=== PATIENT | female | born 1990 | race Two or more races ===

== ENCOUNTER 2016-11-18 16:56 | Emergency (ER) | payer MEDICARE, MEDICAID ==
--- NOTE | 2016-11-18 17:03 | EDM.PDOC ---
ED HPI GENERAL MEDICAL PROBLEM - General Chief Complaint: Abdominal Pain Stated Complaint: STOMACH PAIN Time Seen by Provider: 11/18/16 17:02 Source of Information: Reports: Patient History Limitations: Reports: No Limitations - History of Present Illness INITIAL COMMENTS - FREE TEXT/NARRATIVE: 26 yo F who presents to the ER with recurrent abdominal pain that has been ongoing for the past 2 months. Reports that the pain has been on and off without any obvious aggravating or relieving factors. Pain is mainly on the mid abdomen. Sharp in nature, 4/10 with no obvious aggravating or relieving factors. No fever. It appears she has been evaluated in the past without any exact etiology for her pain. Denied any urinary symptoms. Presented to the ER on account of worsening of symptoms. Onset: Other (ongoing for more than 2 months now) Duration: Getting Worse Quality: Reports: Sharp Improves with: Reports: None Associated Symptoms: Reports: No Other Symptoms abdomen Pain Score (Numeric/FACES): 3 - Related Data Allergies Allergy/AdvReac Type Severity Reaction Status Date / Time Penicillins Allergy Hives Verified 11/18/16 17:24 Home Meds: Home Meds Control Pill 1 tab PO DAILY 11/18/16 [History] Past Medical History HEENT History: Reports: None Cardiovascular History: Reports: None Respiratory History: Reports: Bronchitis, Recurrent Gastrointestinal History: Reports: Cholelithiasis Genitourinary History: Reports: None 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 History: Musculoskeletal History: Reports: Other (See Below) Other Musculoskeletal History: RT LEG PAIN Neurological History: Reports: Migraines Psychiatric History: Reports: None Endocrine/Metabolic History: Reports: Obesity/BMI 30+ Hematologic History: Reports: Anemia, Blood Transfusion(s) Immunologic History: Reports: None Oncologic (Cancer) History: Reports: None Dermatologic History: Reports: None - Past Surgical History Female Surgical History: Reports: Section Social & Family History - Family History Family Medical History: Noncontributory OBGYN: Reports: Other (See Below) Other OBGYN Family History: No Control,. Sexually Active, no period for several months - Tobacco Use Smoking Status *Q: Former Smoker Years of Tobacco use: 2 Packs/Tins Daily: 1 Used Tobacco, but Quit: Yes Month Tobacco Last Used: 12/20 Second Hand Smoke Exposure: No - Caffeine Use Caffeine Use: Reports: Soda - Alcohol Use Days Per Week of Alcohol Use: 1 Number of Drinks Per Day: 2 Total Drinks Per Week: 2 - Recreational Drug Use Recreational Drug Use: No Drug Use in Last 12 Months: Yes Recreational Drug Type: Reports: Marijuana/Hashish ED ROS GENERAL - Review of Systems Review Of Systems: See Below Constitutional: Reports: No Symptoms HEENT: Reports: No Symptoms Respiratory: Reports: No Symptoms Cardiovascular: Reports: No Symptoms Endocrine: Reports: No Symptoms GI/Abdominal: Reports: Abdominal Pain : Reports: No Symptoms Musculoskeletal: Reports: No Symptoms Skin: Reports: No Symptoms Neurological: Reports: No Symptoms Psychiatric: Reports: No Symptoms Hematologic/Lymphatic: Reports: No Symptoms Immunologic: Reports: No Symptoms ED EXAM, GENERAL - Physical Exam Exam: See Below Exam Limited By: No Limitations General Appearance: Alert, WD/WN, No Apparent Distress Ears: Normal External Exam, Normal Canal, Normal TMs Nose: Normal Inspection, Normal Mucosa, No Blood Throat/Mouth: Normal Inspection, Normal Lips, Normal Teeth Head: Atraumatic, Normocephalic Neck: Normal Inspection Respiratory/Chest: No Respiratory Distress, Lungs Clear Cardiovascular: Normal Peripheral Pulses, Regular Rate, Rhythm, No Edema, No JVD , No Murmur GI/Abdominal: Normal Bowel Sounds, Soft, No Organomegaly, Tender, Other (vague mid abdominal pain) (Female) Exam: Deferred Rectal (Female) Exam: Deferred Back Exam: Normal Inspection, Full Range of Motion Extremities: Normal Inspection, Normal Range of Motion, Non-Tender Neurological: Alert, Oriented, CN II-XII Intact, Normal Cognition Psychiatric: Normal Affect, Normal Mood Skin Exam: Warm Lymphatic: No Adenopathy Course - Vital Signs Last Recorded V/S: Last Vital Signs Temp 36.9 C 11/18/16 17:00 Pulse 75 11/18/16 19:42 Resp 14 11/18/16 19:42 BP 124/47 L 11/18/16 19:42 Pulse Ox 100 11/18/16 19:42 - Orders/Labs/Meds Orders: Active Orders 24 hr Category Date Time Status Abdomen 1V Flat [CR] Stat Exams 11/18/16 17:19 Stop Req Labs: Laboratory Tests 11/18/16 11/18/16 11/18/16 Range/Units 17:17 17:17 17:25 WBC 8.8 (4.5-12.0) X10-3/uL RBC 4.88 (3.23-5.20) x10(6)uL Hgb 13.0 (11.5-15.5) g/dL Hct 40.0 (30.0-51.3) % MCV 81.9 (80-96) fL MCH 26.5 L (27.7-33.6) pg MCHC 32.4 (32.2-35.4) g/dL RDW 13.3 (11.5-15.5) % Plt Count 202 (125-369) X10(3)uL MPV 9.9 (7.4-10.4) fL Neut % (Auto) 67.7 (46-82) % Lymph % (Auto) 24.9 (13-37) % [place] % (Auto) 5.9 (4-12) % Eos % (Auto) 1 (1.0-5.0) % Baso % (Auto) 1 (0-2) % Neut # (Auto) 5.9 (1.6-8.3) # Lymph # (Auto) 2.2 (0.6-5.0) # [place] # (Auto) 0.5 (0.0-1.3) # Eos # (Auto) 0.1 (0.0-0.8) # Baso # (Auto) 0.0 (0.0-0.2) # Sodium (135-145) mmol/L Potassium (3.5-5.3) mmol/L Chloride (100-110) mmol/L Carbon Dioxide (23-29) mmol/L BUN (5-20) mg/dL Creatinine (0.6-1.3) mg/dL Est Cr Clr Drug Dosing Estimated GFR (MDRD) (>60) BUN/Creatinine Ratio (9-20) Glucose (80-116) mg/dL Calcium (8.6-10.2) mg/dL Total Bilirubin (0.1-1.3) mg/dL AST (5-27) IU/L ALT (14-26) IU/L Alkaline Phosphatase (56-112) IU/L Total Protein (6.0-8.0) g/dL Albumin (3.5-5.2) g/dL Globulin g/dL Albumin/Globulin Ratio HCG, Quant (2.0 - ) mIU/mL Urine Color Yellow (YELLOW) Urine Appearance Cloudy (CLEAR) Urine pH 6.0 (5.0-6.5) Ur Specific [place] 1.015 (1.010-1.025) Urine Protein Negative (NEGATIVE) mg/dL Urine Glucose (UA) Normal (NEGATIVE) mg/dL Urine Ketones 15 H (NEGATIVE) mg/dL Urine Occult Blood Moderate H (NEGATIVE) Urine Nitrite Negative (NEGATIVE) Urine Bilirubin Small H (NEGATIVE) Urine Urobilinogen 1 H (NEGATIVE) mg/dL Ur Leukocyte Esterase Large H (NEGATIVE) Urine HCG, Qual Positive H (NEGATIVE) 11/18/16 11/18/16 Range/Units 17:25 17:25 WBC (4.5-12.0) X10-3/uL RBC (3.23-5.20) x10(6)uL Hgb (11.5-15.5) g/dL Hct (30.0-51.3) % MCV (80-96) fL MCH (27.7-33.6) pg MCHC (32.2-35.4) g/dL RDW (11.5-15.5) % Plt Count (125-369) X10(3)uL MPV (7.4-10.4) fL Neut % (Auto) (46-82) % Lymph % (Auto) (13-37) % [place] % (Auto) (4-12) % Eos % (Auto) (1.0-5.0) % Baso % (Auto) (0-2) % Neut # (Auto) (1.6-8.3) # Lymph # (Auto) (0.6-5.0) # [place] # (Auto) (0.0-1.3) # Eos # (Auto) (0.0-0.8) # Baso # (Auto) (0.0-0.2) # Sodium 136 (135-145) mmol/L Potassium 3.7 (3.5-5.3) mmol/L Chloride 108 (100-110) mmol/L Carbon Dioxide 21 L (23-29) mmol/L BUN 6 (5-20) mg/dL Creatinine 0.5 L (0.6-1.3) mg/dL Est Cr Clr Drug Dosing TNP Estimated GFR (MDRD) > 60 (>60) BUN/Creatinine Ratio 12.0 (9-20) Glucose 109 (80-116) mg/dL Calcium 9.0 (8.6-10.2) mg/dL Total Bilirubin 0.6 (0.1-1.3) mg/dL AST 20 D (5-27) IU/L ALT 21 D (14-26) IU/L Alkaline Phosphatase 56 (56-112) IU/L Total Protein 8.2 H (6.0-8.0) g/dL Albumin 3.8 (3.5-5.2) g/dL Globulin 4.4 g/dL Albumin/Globulin Ratio 0.9 HCG, Quant [id number] (2.0 - ) mIU/mL Urine Color (YELLOW) Urine Appearance (CLEAR) Urine pH (5.0-6.5) Ur Specific [place] (1.010-1.025) Urine Protein (NEGATIVE) mg/dL Urine Glucose (UA) (NEGATIVE) mg/dL Urine Ketones (NEGATIVE) mg/dL Urine Occult Blood (NEGATIVE) Urine Nitrite (NEGATIVE) Urine Bilirubin (NEGATIVE) Urine Urobilinogen (NEGATIVE) mg/dL Ur Leukocyte Esterase (NEGATIVE) Urine HCG, Qual (NEGATIVE) Departure - Departure Time of Disposition: 20:26 Disposition: Home, Self-Care 01 Condition: Good Clinical Impression: Abdominal pain Qualifiers: Abdominal location: unspecified location Qualified Code(s): R10.9 - Unspecified abdominal pain - Discharge Information Instructions: Back Pain in Referrals: Selwyn Arceo MD [Primary Care Provider] - Forms: ED Department Discharge Additional Instructions: Follow with PCP Tylenol for pain Return if symptoms worsen Call your Physician or Return to Emergency Department if: * Your condition worsens in any way. * You develop fever greater than 100.4. * You have vomitting that does not stop with medications. * You have pain that is not controlled with medications. - My Orders Last 24 Hours: My Active Orders 11/18/16 17:19 Abdomen 1V Flat [CR] Stat - Assessment/Plan Last 24 Hours: My Active Orders 11/18/16 17:19 Abdomen 1V Flat [CR] Stat
[2016-11-18 20:36] VITALS: BP 150/99
== END 2016-11-18 20:32 | disposition home or self-care (01) ==
LOC: FB.ED 16:56
DX: O99.89 Other specified diseases and conditions complicating pregnancy, childbirth and the puerperium (principal); R10.9 Unspecified abdominal pain; G43.909 Migraine, unspecified, not intractable, without status migrainosus; E66.9 Obesity, unspecified; Z86.2 Personal history of diseases of the blood and blood-forming organs and certain disorders involving the immune mechanism; Z88.0 Allergy status to penicillin; Z79.899 Other long term (current) drug therapy; Z87.891 Personal history of nicotine dependence
CPT/HCPCS: 36415; 80053; 81003; 81025; 84702; 85025; 99283; 99284

== ENCOUNTER 2016-11-19 15:51 | Emergency (ER) | payer MEDICARE, MEDICAID ==
[2016-11-19 16:22] VITALS: BP 137/52
--- NOTE | 2016-11-20 02:35 | ER ---
DATE SEEN: 11/19/2016 CHIEF COMPLAINT: Back pain. HISTORY OF PRESENT ILLNESS: This is a 26-year-old female who found out she was yesterday. Today, she was going down the stairs, she fell and landed on her buttock, complains of some pain in the lower back with no radiation. REVIEW OF SYSTEMS: No urinary symptoms. No fever. No weakness of the legs. MEDICATIONS: Reviewed. SOCIAL HISTORY: Noncontributory. PHYSICAL EXAMINATION: VITAL SIGNS: Blood pressure is normal. Pulse is 84. BACK: Low back, no obvious swelling. There is tenderness in the lumbar spine, but gait and station are normal. NEUROLOGIC: Exam is normal. LABORATORY DATA: Ultrasound, 8-week early gestation. IMPRESSION: 1. Early . 2. Back pain new. PLAN: Tylenol or ibuprofen, rest, follow up in the office in 2 weeks, sooner if needed. TIME SEEN: 1530 hours. /[id number] 1718 0224 KUN/DANTE
--- NOTE | 2016-11-20 11:08 | US ---
INDICATION: Unsure of dates, history of twins. COMPARISON: None. ULTRASOUND OB LIMITED ONE OR MORE FETUS: ULTRASOUND OB ENDOVAGINAL: Endovaginal imaging provided for optimal evaluation of the endometrial, adnexal regions. Right ovary measured 2.4 x 2.7 x 1.5 cm. Left ovary measured 2.2 x 1.9 x 2.5 cm. A single gestational sac within the myometrium of the uterus with subjectively normal amniotic fluid. Placenta not visualized due to early intrauterine stage of gestational development. Visualized pole, yolk sac unremarkable. Cardiac M-mode activity of pole is 158 beats per minute. Average crown rump length measures 1.5 cm, correlated with estimated gestational age by ultrasound of 7 weeks 6 days. Estimated date of confinement by ultrasound 02 July 2017. No clinical data provided for correlation. Average gestational sac diameter 3.8 cm, correlation with estimated gestational age by ultrasound 9 weeks 3 days. No solid or cystic adnexal mass. No subchorionic hemorrhage, abnormal free fluid in the cul-de-sac. Bilobed, peripherally hypoechoic centrally mildly hyperechoic solid mass of the anterior mid aspect of uterine myometrium measures 5.4 x 2.8 x 5 cm in diameter. This is at the mid to inferior aspect. IMPRESSION: 1. Live intrauterine mcdaniel with estimated gestational age by ultrasound 7 weeks 6 days. 2. No evidence of subchorionic hemorrhage, fluid collections, adnexal solid or cystic mass. 3. 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 MTDD
== END 2016-11-19 17:20 | disposition home or self-care (01) ==
LOC: FB.ED 15:51
DX: O99.89 Other specified diseases and conditions complicating pregnancy, childbirth and the puerperium (principal); M54.5 Low back pain; W10.9XXA Fall (on) (from) unspecified stairs and steps, initial encounter
CPT/HCPCS: 76815; 76817; 99282; 99283

== ENCOUNTER 2016-12-11 12:28 | Emergency (ER) | payer MEDICARE, MEDICAID ==
[2016-12-11] MEDS ORDERED: HYDROmorphone 2 MG/ML SDV IM ONE (13:12)
[2016-12-11] MEDS ORDERED: Ondansetron 4 MG Tab.DIS PO ONE (13:13)
--- NOTE | 2016-12-11 13:19 | EDM.PDOC ---
ED HPI GENERAL MEDICAL PROBLEM - General Chief Complaint: Headache Stated Complaint: LIGHT HEADED Time Seen by Provider: 12/11/16 13:05 Source of Information: Reports: Patient, Old Records History Limitations: Reports: No Limitations - History of Present Illness INITIAL COMMENTS - FREE TEXT/NARRATIVE: 26 yo female patient of Dr. Dong presents with a 4 day LE associated with nausea, but no vomiting. No fever. No head injury. Has had LE's in the past, but this is worse. Taking only acetaminophen for pain as she is 11 weeks preg. Has a 4:15 pm appt today with him, but could not wait. Is here via [place] with her children. Onset Date: 12/07/16 Duration: Day(s): Location: Reports: Head Quality: Reports: Ache Severity: Moderate Improves with: Reports: Medication Worsens with: Reports: None Context: Reports: Other (, hx of LE's) Associated Symptoms: Reports: Headaches, Nausea/Vomiting. 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 History: Musculoskeletal History: Reports: Other (See Below) Other Musculoskeletal History: RT LEG PAIN Neurological History: Reports: Migraines Psychiatric History: Reports: None Endocrine/Metabolic History: Reports: Obesity/BMI 30+ Hematologic History: Reports: Anemia, Blood Transfusion(s) Immunologic History: Reports: None Oncologic (Cancer) History: Reports: None Dermatologic History: Reports: None - Past Surgical History Head Surgeries/Procedures: Reports: None Female Surgical History: Reports: Section Social & Family History - Family History Family Medical History: Noncontributory OBGYN: Reports: Other (See Below) Other OBGYN Family History: No Control,. Sexually Active, no period for several months - Tobacco Use Smoking Status *Q: Former Smoker Years of Tobacco use: 2 Packs/Tins Daily: 1 Used Tobacco, but Quit: Yes Month Tobacco Last Used: 08/2016 Second Hand Smoke Exposure: No - Caffeine Use Caffeine Use: Reports: None - Alcohol Use Days Per Week of Alcohol Use: 1 Number of Drinks Per Day: 2 Total Drinks Per Week: 2 - Recreational Drug Use Recreational Drug Use: No Drug Use in Last 12 Months: Yes Recreational Drug Type: Reports: Marijuana/Hashish ED ROS GENERAL - Review of Systems Review Of Systems: See Below Constitutional: Reports: No Symptoms HEENT: Reports: Other (mild photophobia) Respiratory: Reports: No Symptoms Cardiovascular: Reports: No Symptoms Endocrine: Reports: No Symptoms GI/Abdominal: Reports: Nausea. Denies: Abdominal Pain, Black Stool, Bloody Stool, Vomiting : Reports: No Symptoms Musculoskeletal: Reports: No Symptoms Skin: Reports: No Symptoms Neurological: Reports: Headache Psychiatric: Reports: No Symptoms Hematologic/Lymphatic: Reports: No Symptoms - Physical Exam Exam: See Below Exam Limited By: No Limitations General Appearance: Alert, WD/WN, No Apparent Distress Eye Exam: Bilateral Eye: Conjunctival Injection, EOMI, Normal Fundi, PERRL Course - Vital Signs Text/Narrative:: Dilaudid 1 mg IM, Zofran ODT 4 mg SL Last Recorded V/S: Last Vital Signs Temp 37.1 C 12/11/16 12:57 Pulse 87 12/11/16 12:57 Resp 16 12/11/16 12:57 BP 116/50 L 12/11/16 12:57 Pulse Ox 100 12/11/16 12:57 - Orders/Labs/Meds Meds: Medications Discontinued Medications Generic Name Dose Route Start Last Admin Trade Name Gregorio PRN Reason Stop Dose Admin Hydromorphone HCl 1 mg 12/11/16 13:12 Dilaudid IM 12/11/16 13:13 ONETIME ONE Ondansetron HCl 4 mg 12/11/16 13:13 Zofran Odt PO 12/11/16 13:14 ONETIME ONE Departure - Departure Time of Disposition: 13:45 Disposition: Home, Self-Care 01 Condition: Good Clinical Impression: First trimester Headache Qualifiers: Headache type: unspecified Headache chronicity pattern: acute headache Intractability: not intractable Qualified Code(s): R51 - Headache - Discharge Information Referrals: Selwyn Arceo MD [Primary Care Provider] - Forms: ED Department Discharge Additional Instructions: Keep your appt with Dr. Arceo for later this afternoon. Acetaminophen as needed.
[2016-12-11 14:40] VITALS: BP 113/70
== END 2016-12-11 14:35 | disposition home or self-care (01) ==
LOC: FB.ED 12:28
DX: O99.89 Other specified diseases and conditions complicating pregnancy, childbirth and the puerperium (principal); O99.211 Obesity complicating pregnancy, first trimester; R51 Headache; Z87.891 Personal history of nicotine dependence; Z86.2 Personal history of diseases of the blood and blood-forming organs and certain disorders involving the immune mechanism; Z88.0 Allergy status to penicillin; Z68.41 Body mass index [BMI] 40.0-44.9, adult; Z3A.11 11 weeks gestation of pregnancy
CPT/HCPCS: 96372; 99283; A9270; J1170

== ENCOUNTER 2016-12-12 18:27 | Emergency (ER) | payer MEDICARE, MEDICAID ==
--- NOTE | 2016-12-12 18:44 | EDM.PDOC ---
ED HPI GENERAL MEDICAL PROBLEM - General Chief Complaint: Genitourinary Problem Stated Complaint: UNABLE TO URINATE Time Seen by Provider: 12/12/16 18:40 Source of Information: Reports: Patient History Limitations: Reports: No Limitations - History of Present Illness INITIAL COMMENTS - FREE TEXT/NARRATIVE: 26 yo female presents stating she has an inability to urinate. Is not uncomfortable. Is about 11 weeks . Onset: Today Onset Date: 12/12/16 Duration: Hour(s):, Constant Location: Reports: Other (no pain) Severity: Moderate Improves with: Reports: None Worsens with: Reports: None Context: Reports: Other (1st trimester IUP) Associated Symptoms: Reports: No Other Symptoms Treatments ARTIST'S REPRESENTATIVE: Reports: Other (see below) (none) - Related Data Allergies Allergy/AdvReac Type Severity Reaction Status Date / Time Penicillins Allergy Hives Verified 12/12/16 18:53 Home Meds: Home Meds Cephalexin [Keflex] 500 mg PO TID #16 capsule 12/12/16 [Rx] Past Medical History HEENT History: Reports: None Cardiovascular History: Reports: None Respiratory History: Reports: Bronchitis, Recurrent Gastrointestinal History: Reports: Cholelithiasis Genitourinary History: Reports: None 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 History: Musculoskeletal History: Reports: Other (See Below) Other Musculoskeletal History: RT LEG PAIN Neurological History: Reports: Migraines Psychiatric History: Reports: None Endocrine/Metabolic History: Reports: Obesity/BMI 30+ Hematologic History: Reports: Anemia, Blood Transfusion(s) Immunologic History: Reports: None Oncologic (Cancer) History: Reports: None Dermatologic History: Reports: None - Past Surgical History Head Surgeries/Procedures: Reports: None Female Surgical History: Reports: Section Social & Family History - Family History Family Medical History: Noncontributory OBGYN: Reports: Other (See Below) Other OBGYN Family History: No Control,. Sexually Active, no period for several months - Tobacco Use Smoking Status *Q: Former Smoker Years of Tobacco use: 2 Packs/Tins Daily: 1 Used Tobacco, but Quit: Yes Month Tobacco Last Used: 2016 Second Hand Smoke Exposure: No - Caffeine Use Caffeine Use: Reports: Soda - Alcohol Use Days Per Week of Alcohol Use: 1 Number of Drinks Per Day: 2 Total Drinks Per Week: 2 - Recreational Drug Use Recreational Drug Use: No Drug Use in Last 12 Months: Yes Recreational Drug Type: Reports: Marijuana/Hashish ED ROS GENERAL - Review of Systems Review Of Systems: See Below Constitutional: Reports: No Symptoms HEENT: Reports: No Symptoms Respiratory: Reports: No Symptoms Cardiovascular: Reports: No Symptoms Endocrine: Reports: No Symptoms GI/Abdominal: Reports: No Symptoms : Reports: Other (decreased urination) Musculoskeletal: Reports: No Symptoms Skin: Reports: No Symptoms Neurological: Reports: No Symptoms Psychiatric: Reports: No Symptoms ED EXAM, RENAL/ - Physical Exam Exam: See Below Exam Limited By: No Limitations General Appearance: Alert, WD/WN, No Apparent Distress, Obese Eye Exam: Bilateral Eye: Normal Inspection Ears: Normal External Exam, Normal Canal, Hearing Grossly Normal Nose: Normal Inspection, Normal Mucosa, No Blood Throat/Mouth: Normal Inspection, Normal Lips, Normal Voice, No Airway Compromise Head: Atraumatic, Normocephalic Neck: Normal Inspection Respiratory/Chest: No Respiratory Distress, Lungs Clear, Normal Breath Sounds, No Accessory Muscle Use Cardiovascular: Regular Rate, Rhythm, No Edema Back Exam: Normal Inspection. No: CVA Tenderness (R), CVA Tenderness (L) Extremities: Normal Inspection, Non-Tender, No Pedal Edema Neurological: Alert, Oriented, CN II-XII Intact, Normal Cognition, Normal Gait, No Motor/Sensory Deficits Psychiatric: Normal Affect, Normal Mood Lymphatic: No Adenopathy Course - Vital Signs Text/Narrative:: Bladder scan 35 ml Keflex 500 mg po Last Recorded V/S: Last Vital Signs Temp 37.0 C 12/12/16 18:46 Pulse 75 12/12/16 18:46 Resp 14 12/12/16 18:46 BP 107/49 L 12/12/16 18:46 Pulse Ox 100 12/12/16 18:46 - Orders/Labs/Meds Orders: Active Orders 24 hr Category Date Time Status CULTURE URINE [RM] Stat Lab 12/12/16 19:22 Uncollected Labs: Laboratory Tests 12/12/16 12/12/16 Range/Units 18:45 19:10 BUN 9 (5-20) mg/dL Creatinine 0.5 L (0.6-1.3) mg/dL Est Cr Clr Drug Dosing 167.42 mL/min Estimated GFR (MDRD) > 60 (>60) Urine Color Yellow (YELLOW) Urine Appearance Cloudy (CLEAR) Urine pH 5.0 (5.0-6.5) Ur Specific [place] 1.030 H (1.010-1.025) Urine Protein Negative (NEGATIVE) mg/dL Urine Glucose (UA) Normal (NEGATIVE) mg/dL Urine Ketones Negative (NEGATIVE) mg/dL Urine Occult Blood Moderate H (NEGATIVE) Urine Nitrite Negative (NEGATIVE) Urine Bilirubin Small H (NEGATIVE) Urine Urobilinogen 4 H (NEGATIVE) mg/dL Ur Leukocyte Esterase Large H (NEGATIVE) Meds: Medications Discontinued Medications Generic Name Dose Route Start Last Admin Trade Name Freq PRN Reason Stop Dose Admin Cephalexin 500 mg 12/12/16 19:23 Keflex PO 12/12/16 19:24 ONETIME ONE Departure - Departure Time of Disposition: 19:35 Disposition: Home, Self-Care 01 Condition: Good Clinical Impression: Cystitis, Mild dehydration - Discharge Information Prescriptions: Cephalexin [Keflex] 500 mg PO TID #16 capsule Referrals: Selwyn Arceo MD [Primary Care Provider] - Forms: ED Department Discharge Additional Instructions: Take cephalexin every 8 hrs. Drink more water. Recheck in the clinic to review your culture results on Sunday, call for an appt. - My Orders Last 24 Hours: My Active Orders 12/12/16 19:22 CULTURE URINE [RM] Stat - Assessment/Plan Last 24 Hours: My Active Orders 12/12/16 19:22 CULTURE URINE [RM] Stat
[2016-12-12 18:53] VITALS: BP 107/49
[2016-12-12] MEDS ORDERED: Cephalexin 500 MG Cap PO ONE (19:23)
== END 2016-12-12 19:46 | disposition home or self-care (01) ==
LOC: FB.ED 18:27
DX: O23.11 Infections of bladder in pregnancy, first trimester (principal); O99.611 Diseases of the digestive system complicating pregnancy, first trimester; O99.350 Diseases of the nervous system complicating pregnancy, unspecified trimester; O99.211 Obesity complicating pregnancy, first trimester; E86.0 Dehydration; G43.909 Migraine, unspecified, not intractable, without status migrainosus; Z88.0 Allergy status to penicillin; Z87.891 Personal history of nicotine dependence; Z3A.11 11 weeks gestation of pregnancy
CPT/HCPCS: 36415; 81003; 82565; 84520; 99283; A9270

== ENCOUNTER 2017-01-07 17:18 | Emergency (ER) | payer MEDICARE, MEDICAID ==
[2017-01-07] MEDS ORDERED: Acetaminophen/Codeine 300-30 MG Tab PO ONE (17:35)
--- NOTE | 2017-01-07 17:41 | EDM.PDOC ---
ED HPI GENERAL MEDICAL PROBLEM - General Chief Complaint: Headache Stated Complaint: HEADACHE Time Seen by Provider: 01/07/17 17:25 Source of Information: Reports: Patient, Old Records History Limitations: Reports: No Limitations - History of Present Illness INITIAL COMMENTS - FREE TEXT/NARRATIVE: Saige comes to [facility] ED with a throbbing headache that began at 9 am today. Sxs originated in the back of the scalp, and have gradually migrated to the front of the scalp and face. There is some vague blurred vision, no reported congestion of sore throat, no cough or fever. There is no scotomata, nausea, or photophobia. She tried some Tylenol for sxs relief. She is 15.5 weeks . - Related Data Allergies Allergy/AdvReac Type Severity Reaction Status Date / Time Penicillins Allergy Hives Verified 12/12/16 18:53 Home Meds: Home Meds Pnv No.122/Iron/Folic Acid [ Multi Tablet] 1 tab PO DAILY 01/07/17 [ History] Past Medical History HEENT History: Reports: None Cardiovascular History: Reports: None Respiratory History: Reports: Bronchitis, Recurrent Gastrointestinal History: Reports: Cholelithiasis Genitourinary History: Reports: None [employer]ER History: Reports: Other OB/BYN History: Musculoskeletal History: Reports: Other (See Below) Other Musculoskeletal History: RT LEG PAIN Neurological History: Reports: Migraines Psychiatric History: Reports: None Endocrine/Metabolic History: Reports: Obesity/BMI 30+ Hematologic History: Reports: Anemia, Blood Transfusion(s) Immunologic History: Reports: None Oncologic (Cancer) History: Reports: None Dermatologic History: Reports: None - Past Surgical History Head Surgeries/Procedures: Reports: None Female Surgical History: Reports: Section Social & Family History - Family History Family Medical History: Noncontributory OBGYN: Reports: Other (See Below) Other OBGYN Family History: No Control,. Sexually Active, no period for several months - Tobacco Use Smoking Status *Q: Former Smoker Years of Tobacco use: 2 Packs/Tins Daily: 1 Used Tobacco, but Quit: Yes Month Tobacco Last Used: 2016 Second Hand Smoke Exposure: No - Caffeine Use Caffeine Use: Reports: Soda - Alcohol Use Days Per Week of Alcohol Use: 1 Number of Drinks Per Day: 2 Total Drinks Per Week: 2 - Recreational Drug Use Recreational Drug Use: No Drug Use in Last 12 Months: Yes Recreational Drug Type: Reports: Marijuana/Hashish ED ROS GENERAL - Review of Systems Review Of Systems: ROS reveals no pertinent complaints other than HPI. - Physical Exam Exam: See Below Exam Limited By: No Limitations General Appearance: Alert, WD/WN, No Apparent Distress Eye Exam: Bilateral Eye: EOMI, Normal Fundi, Normal Inspection, PERRL Ears: Normal External Exam, Normal Canal, Normal TMs Nose: Normal Inspection Throat/Mouth: Normal Inspection, Normal Lips, Normal Teeth, Normal Gums, Normal Oropharynx, Normal Voice, No Airway Compromise Head Exam: Atraumatic, Normocephalic, Other (scalp nontender) Neck: Normal Inspection, Supple, Non-Tender, Full Range of Motion Respiratory/Chest: Lungs Clear, Normal Breath Sounds Cardiovascular: Regular Rate, Rhythm, No Murmur GI/Abdominal: Normal Bowel Sounds, Soft, Non-Tender Neuro Exam (Abbreviated): Alert, Oriented, CN II-XII Intact, Normal Cognition, Normal Gait, No Motor/Sensory Deficits Back Exam: Normal Inspection Extremities: Normal Inspection Psychiatric: Normal Affect, Anxious Skin Exam: Warm, Dry Course - Vital Signs Text/Narrative:: Saige remained stable at the [facility] ED. I administered Tylenol #3 for headache sxs before departure. Departure - Departure Time of Disposition: 17:41 Disposition: Home, Self-Care 01 Condition: Fair Clinical Impression: Tension-type headache - Discharge Information - Problem List & Annotations (1) Tension-type headache SNOMED Code(s): 399468461 Code(s): G44.209 - TENSION-TYPE HEADACHE, UNSPECIFIED, NOT INTRACTABLE Status: Acute Current Visit: Yes Annotation/Comment:: I suggested rest, warm or cool packs to back of scalp, and Tylenol for further management. - Problem List Review Problem List Initiated/Reviewed/Updated: Yes - Assessment/Plan Plan: Follow up with PCP.
== END 2017-01-07 17:45 | disposition home or self-care (01) ==
LOC: FB.ED 17:18
DX: O99.352 Diseases of the nervous system complicating pregnancy, second trimester (principal); O99.212 Obesity complicating pregnancy, second trimester; G44.209 Tension-type headache, unspecified, not intractable; E66.9 Obesity, unspecified; Z68.41 Body mass index [BMI] 40.0-44.9, adult; Z88.0 Allergy status to penicillin; Z79.899 Other long term (current) drug therapy; Z87.891 Personal history of nicotine dependence; Z3A.15 15 weeks gestation of pregnancy
CPT/HCPCS: 99283; A9270

== ENCOUNTER 2017-01-25 16:50 | Emergency (ER) | payer MEDICARE, MEDICAID ==
[2017-01-25] MEDS ORDERED: Sodium Chloride 0.9% 1,000 ML IV ONE (17:06)
[2017-01-25] MEDS ORDERED: Ondansetron 4 MG/2 ML SDV IVPUSH ONE (17:06)
--- NOTE | 2017-01-25 17:48 | EDM.PDOC ---
ED HPI GENERAL MEDICAL PROBLEM - General Chief Complaint: Abdominal Pain Stated Complaint: ABD PAIN Time Seen by Provider: 01/25/17 16:50 Source of Information: Reports: Patient, Family History Limitations: Reports: No Limitations - History of Present Illness Onset: Today, Sudden, Unknown/Unsure Onset Date: 01/25/17 Onset Time: 08:00 Duration: Hour(s):, Intermittent Location: Reports: Abdomen (lower abd. ) Quality: Reports: Dull, Throbbing Severity: Moderate Improves with: Reports: None Worsens with: Reports: None Context: Reports: Other () Associated Symptoms: Reports: Nausea/Vomiting - Related Data Allergies Allergy/AdvReac Type Severity Reaction Status Date / Time Penicillins Allergy Hives Verified 12/12/16 18:53 Home Meds: Home Meds Pnv No.122/Iron/Folic Acid [ Multi Tablet] 1 tab PO DAILY 01/07/17 [ History] Nitrofurantoin Monohyd/M-Cryst [Macrobid 100 mg Capsule] 100 mg PO BID #20 capsule 01/25/17 [Rx] Past Medical History HEENT History: Reports: None Cardiovascular History: Reports: None Respiratory History: Reports: Bronchitis, Recurrent Gastrointestinal History: Reports: Cholelithiasis Genitourinary History: Reports: None 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 History: Musculoskeletal History: Reports: Other (See Below) Other Musculoskeletal History: RT LEG PAIN Neurological History: Reports: Migraines Psychiatric History: Reports: None Endocrine/Metabolic History: Reports: Obesity/BMI 30+ Hematologic History: Reports: Anemia, Blood Transfusion(s) Immunologic History: Reports: None Oncologic (Cancer) History: Reports: None Dermatologic History: Reports: None - Past Surgical History Head Surgeries/Procedures: Reports: None Female Surgical History: Reports: Section Social & Family History - Family History Family Medical History: Noncontributory OBGYN: Reports: Other (See Below) Other OBGYN Family History: No Control,. Sexually Active, no period for several months - Tobacco Use Smoking Status *Q: Former Smoker Years of Tobacco use: 2 Packs/Tins Daily: 1 Used Tobacco, but Quit: Yes Month Tobacco Last Used: 2016 Second Hand Smoke Exposure: No - Caffeine Use Caffeine Use: Reports: Soda - Alcohol Use Days Per Week of Alcohol Use: 1 Number of Drinks Per Day: 2 Total Drinks Per Week: 2 - Recreational Drug Use Recreational Drug Use: No Drug Use in Last 12 Months: Yes Recreational Drug Type: Reports: Marijuana/Hashish ED ROS GENERAL - Review of Systems Review Of Systems: See Below Constitutional: Reports: No Symptoms HEENT: Reports: No Symptoms Respiratory: Reports: No Symptoms Cardiovascular: Reports: No Symptoms Endocrine: Reports: No Symptoms GI/Abdominal: Reports: Abdominal Pain : Reports: No Symptoms Musculoskeletal: Reports: No Symptoms Skin: Reports: No Symptoms Neurological: Reports: No Symptoms Psychiatric: Reports: No Symptoms Hematologic/Lymphatic: Reports: No Symptoms Immunologic: Reports: No Symptoms ED EXAM, GI/ABD - Physical Exam Exam: See Below Exam Limited By: Other (abd. pain) General Appearance: Alert, Obese (morbid) Eyes: Bilateral: Normal Appearance Ears: Normal External Exam Nose: Normal Inspection Throat/Mouth: Normal Inspection Head: Atraumatic, Normocephalic Neck: Normal Inspection, Supple, Non-Tender Respiratory/Chest: No Respiratory Distress, Lungs Clear, Normal Breath Sounds Cardiovascular: Normal Peripheral Pulses, Regular Rate, Rhythm GI/Abdominal Exam: Normal Bowel Sounds, Tender (periumbilical, mid lower abd. ) (Female) Exam: Deferred Rectal (Female) Exam: Deferred Back Exam: Normal Inspection Extremities: Normal Inspection, Normal Range of Motion, Non-Tender Neurological: Alert, Oriented, CN II-XII Intact, Normal Cognition Psychiatric: Normal Affect, Normal Mood Skin Exam: Warm, Dry, Intact, Normal Color, No Rash Lymphatic: No Adenopathy Course - Vital Signs Text/Narrative:: Labs: CBC and BMP wnl, HCG 90134 UA is pending Imaging: Pelvic US HR 149, 18 weeks 1 day. Last Recorded V/S: Last Vital Signs Temp 36.9 C 01/25/17 18:45 Pulse 90 01/25/17 18:45 Resp 16 01/25/17 18:45 BP 132/49 L 01/25/17 18:45 Pulse Ox 100 01/25/17 18:45 - Orders/Labs/Meds Orders: Active Orders 24 hr Category Date Time Status OB 2 Or 3 Tri Sgl 1st Gest [US] Stat Exams 01/25/17 16:59 Taken CULTURE URINE [RM] Stat Lab 01/25/17 18:51 Uncollected Nitrofurantoin Norton/Macrocryst [Macrobid] Med 01/25/17 18:52 Once 100 mg PO ONETIME ONE Labs: Laboratory Tests 01/25/17 01/25/17 01/25/17 Range/Units 17:10 17:10 17:10 WBC 10.3 (4.5-12.0) X10-3/uL RBC 4.46 (3.23-5.20) x10(6)uL Hgb 12.1 (11.5-15.5) g/dL Hct 35.9 (30.0-51.3) % MCV 80.4 (80-96) fL MCH 27.1 L (27.7-33.6) pg MCHC 33.7 (32.2-35.4) g/dL RDW 14.5 (11.5-15.5) % Plt Count 173 (125-369) X10(3)uL MPV 10.0 (7.4-10.4) fL Neut % (Auto) 62.2 (46-82) % Lymph % (Auto) 29.1 (13-37) % Norton % (Auto) 6.8 (4-12) % Eos % (Auto) 2 (1.0-5.0) % Baso % (Auto) 0 (0-2) % Neut # (Auto) 6.4 (1.6-8.3) # Lymph # (Auto) 3.0 (0.6-5.0) # Norton # (Auto) 0.7 (0.0-1.3) # Eos # (Auto) 0.2 (0.0-0.8) # Baso # (Auto) 0.0 (0.0-0.2) # Sodium 138 (135-145) mmol/L Potassium 3.7 (3.5-5.3) mmol/L Chloride 107 (100-110) mmol/L Carbon Dioxide 21 L (23-29) mmol/L BUN 8 (5-20) mg/dL Creatinine 0.6 (0.6-1.3) mg/dL Est Cr Clr Drug Dosing TNP Estimated GFR (MDRD) > 60 (>60) BUN/Creatinine Ratio 13.3 (9-20) Glucose 107 (80-116) mg/dL Calcium 8.9 (8.6-10.2) mg/dL HCG, Quant 62177 (2.0 - ) mIU/mL Urine Color (YELLOW) Urine Appearance (CLEAR) Urine pH (5.0-6.5) Ur Specific [place] (1.010-1.025) Urine Protein (NEGATIVE) mg/dL Urine Glucose (UA) (NEGATIVE) mg/dL Urine Ketones (NEGATIVE) mg/dL Urine Occult Blood (NEGATIVE) Urine Nitrite (NEGATIVE) Urine Bilirubin (NEGATIVE) Urine Urobilinogen (NEGATIVE) mg/dL Ur Leukocyte Esterase (NEGATIVE) Urine RBC (0) Urine WBC (0) Ur Squamous Epith Cells (NS,R,O) Urine Bacteria (NS) 01/25/17 Range/Units 18:10 WBC (4.5-12.0) X10-3/uL RBC (3.23-5.20) x10(6)uL Hgb (11.5-15.5) g/dL Hct (30.0-51.3) % MCV (80-96) fL MCH (27.7-33.6) pg MCHC (32.2-35.4) g/dL RDW (11.5-15.5) % Plt Count (125-369) X10(3)uL MPV (7.4-10.4) fL Neut % (Auto) (46-82) % Lymph % (Auto) (13-37) % Norton % (Auto) (4-12) % Eos % (Auto) (1.0-5.0) % Baso % (Auto) (0-2) % Neut # (Auto) (1.6-8.3) # Lymph # (Auto) (0.6-5.0) # Norton # (Auto) (0.0-1.3) # Eos # (Auto) (0.0-0.8) # Baso # (Auto) (0.0-0.2) # Sodium (135-145) mmol/L Potassium (3.5-5.3) mmol/L Chloride (100-110) mmol/L Carbon Dioxide (23-29) mmol/L BUN (5-20) mg/dL Creatinine (0.6-1.3) mg/dL Est Cr Clr Drug Dosing Estimated GFR (MDRD) (>60) BUN/Creatinine Ratio (9-20) Glucose (80-116) mg/dL Calcium (8.6-10.2) mg/dL HCG, Quant (2.0 - ) mIU/mL Urine Color Yellow (YELLOW) Urine Appearance Slightly cloudy (CLEAR) Urine pH 5.0 (5.0-6.5) Ur Specific [place] 1.025 (1.010-1.025) Urine Protein Negative (NEGATIVE) mg/dL Urine Glucose (UA) Normal (NEGATIVE) mg/dL Urine Ketones Negative (NEGATIVE) mg/dL Urine Occult Blood Negative (NEGATIVE) Urine Nitrite Negative (NEGATIVE) Urine Bilirubin Negative (NEGATIVE) Urine Urobilinogen 4 H (NEGATIVE) mg/dL Ur Leukocyte Esterase Large H (NEGATIVE) Urine RBC 0-5 (0) Urine WBC 20-30 H (0) Ur Squamous Epith Cells Few H (NS,R,O) Urine Bacteria Moderate H (NS) Meds: Medications Discontinued Medications Generic Name Dose Route Start Last Admin Trade Name Freq PRN Reason Stop Dose Admin Sodium Chloride 1,000 mls @ 999 mls/hr 01/25/17 17:06 01/25/17 17:35 Normal Saline IV 01/25/17 18:06 999 mls/hr .BOLUS ONE Administration Ondansetron HCl 8 mg 01/25/17 17:06 01/25/17 18:29 Zofran IVPUSH 01/25/17 17:07 8 mg ONETIME ONE Administration Departure - Departure Time of Disposition: 18:48 Disposition: Home, Self-Care 01 Condition: Good Clinical Impression: Hyperemesis gravidarum, Dehydration, Abdominal pain during intrauterine UTI (urinary tract infection) Qualifiers: Urinary tract infection type: acute cystitis Hematuria presence: without hematuria Qualified Code(s): N30.00 - Acute cystitis without hematuria - Discharge Information Prescriptions: Nitrofurantoin Monohyd/M-Cryst [Macrobid 100 mg Capsule] 100 mg PO BID #20 capsule Referrals: Selwyn Arceo MD [Primary Care Provider] - Forms: ED Department Discharge Additional Instructions: Please come back at 1 pm tomorrow to repeat the pelvic US to r/o a artefact. Please take zofran for nausea, Macrobid for the UTI, please increase water intake. Please come back if your symptoms get worse acutely - My Orders Last 24 Hours: My Active Orders 01/25/17 16:59 OB 2 Or 3 Tri Sgl 1st Gest [US] Stat 01/25/17 18:51 CULTURE URINE [RM] Stat 01/25/17 18:52 Nitrofurantoin Norton/Macrocryst [Macrobid] 100 mg PO ONETIME ONE - Assessment/Plan Last 24 Hours: My Active Orders 01/25/17 16:59 OB 2 Or 3 Tri Sgl 1st Gest [US] Stat 01/25/17 18:51 CULTURE URINE [RM] Stat 01/25/17 18:52 Nitrofurantoin Norton/Macrocryst [Macrobid] 100 mg PO ONETIME ONE
[2017-01-25 18:46] VITALS: BP 132/49
[2017-01-25] MEDS ORDERED: Nitrofurantoin Monohydrate/Macrocrystalline 100 MG Cap PO ONE (18:52)
--- NOTE | 2017-01-26 08:57 | US ---
INDICATION: Mid abdominal pelvic pain apparently after a trauma. OB ULTRASOUND 2ND OR 3RD TRIMESTER: Multiple ultrasonic images were obtained and were compared with 11/28/2016. A normal amount of amniotic fluid is noted. The placenta is anterior, grade 1-2 without evidence of previa. It is bowed forward by what appears to be either a mass or a contraction of the anterior myometrium. A fibroid could be present in that area versus a contraction. Follow-up ultrasound in the a.m. will be obtained as possible, to further evaluate this area. The fetus appeared to be active with a regular heart rate of 149 BPM. No adnexal mass lesions or free fluid collections were identified. Maternal ovaries were not demonstrated. Cervix measured 4.4 cm. Gestational age measurements were closely grouped: BPD 18 weeks 3 days. HC 18 weeks AC 17 weeks 3 days. FL 18 weeks 3 days and averaged 18 weeks 1 day, which is 3 days ahead of the LMP GA of 17 weeks 5 days. HARVEY by ultrasound is 06/27/2017, compared with 06/30/2017 for the LMP HARVEY. Estimated weight was 212 grams (7 ounces) 53rd percentile. Head circumference/abdominal circumference ratio was at the upper limits of normal, but within normal range at 1.29. The gestational age compared with the previous ultrasound of 11/28/2016 is 4 days head of that previous measurement. IMPRESSION: Contraction versus fibroid anterior myometrium. Ultrasound will be repeated in the a.m. to further evaluate that area. No definite evidence of abruption was seen. No placenta previa is present. Report was called to Dr. Fuentes at approximately 1840 hours, 01/25/2017. [facility]
== END 2017-01-25 19:08 | disposition home or self-care (01) ==
LOC: FB.ED 16:50
DX: O21.1 Hyperemesis gravidarum with metabolic disturbance (principal); O26.891 Other specified pregnancy related conditions, first trimester; O23.11 Infections of bladder in pregnancy, first trimester; N30.00 Acute cystitis without hematuria; Z3A.18 18 weeks gestation of pregnancy; Z88.0 Allergy status to penicillin; Z87.891 Personal history of nicotine dependence
CPT/HCPCS: 36415; 76805; 80048; 81001; 84702; 85025; 87086; 96361; 96374; 99284; A9270; J2405; J7040

== ENCOUNTER 2017-01-28 16:02 | Emergency (ER) | payer MEDICARE, MEDICAID ==
--- NOTE | 2017-01-28 16:21 | EDM.PDOC ---
ED HPI GENERAL MEDICAL PROBLEM - General Chief Complaint: Headache Stated Complaint: HEADACHE Time Seen by Provider: 01/28/17 16:02 Source of Information: Reports: Patient, Family History Limitations: Reports: No Limitations - History of Present Illness INITIAL COMMENTS - FREE TEXT/NARRATIVE: 26 y.o.w.f, 18 wks, come to the ed due to headache off on in the past few days. Pt stated she took Tylenol which did not help. Pt is well known her in the ed due to frequent ED visits. No N/V/D or any other acute medical issues. Onset: Unknown/Unsure Onset Date: 01/25/17 Onset Time: 06:00 Duration: Day(s):, Intermittent Location: Reports: Head Quality: Reports: Ache Severity: Mild Improves with: Reports: Cold Therapy, Medication Worsens with: Reports: Movement Context: Reports: Other (tension, no trauma) Associated Symptoms: Reports: No Other Symptoms - Related Data Allergies Allergy/AdvReac Type Severity Reaction Status Date / Time Penicillins Allergy Hives Verified 01/28/17 16:18 Home Meds: Home Meds Pnv No.122/Iron/Folic Acid [ Multi Tablet] 1 tab PO DAILY 01/07/17 [ History] Past Medical History HEENT History: Reports: None Cardiovascular History: Reports: None Respiratory History: Reports: Bronchitis, Recurrent Gastrointestinal History: Reports: Cholelithiasis Genitourinary History: Reports: None 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 History: Musculoskeletal History: Reports: Other (See Below) Other Musculoskeletal History: RT LEG PAIN Neurological History: Reports: Migraines Psychiatric History: Reports: None Endocrine/Metabolic History: Reports: Obesity/BMI 30+ Hematologic History: Reports: Anemia, Blood Transfusion(s) Immunologic History: Reports: None Oncologic (Cancer) History: Reports: None Dermatologic History: Reports: None - Past Surgical History Head Surgeries/Procedures: Reports: None Female Surgical History: Reports: Section Social & Family History - Family History Family Medical History: Noncontributory OBGYN: Reports: Other (See Below) Other OBGYN Family History: No Control,. Sexually Active, no period for several months - Tobacco Use Smoking Status *Q: Former Smoker Years of Tobacco use: 2 Packs/Tins Daily: 1 Used Tobacco, but Quit: Yes Month Tobacco Last Used: 2017 Second Hand Smoke Exposure: No - Caffeine Use Caffeine Use: Reports: Soda - Alcohol Use Days Per Week of Alcohol Use: 1 Number of Drinks Per Day: 2 Total Drinks Per Week: 2 - Recreational Drug Use Recreational Drug Use: No Drug Use in Last 12 Months: Yes Recreational Drug Type: Reports: Marijuana/Hashish ED ROS GENERAL - Review of Systems Review Of Systems: See Below Constitutional: Reports: No Symptoms HEENT: Reports: No Symptoms Respiratory: Reports: No Symptoms Cardiovascular: Reports: No Symptoms Endocrine: Reports: No Symptoms GI/Abdominal: Reports: No Symptoms : Reports: No Symptoms Musculoskeletal: Reports: No Symptoms Skin: Reports: No Symptoms Neurological: Reports: No Symptoms Psychiatric: Reports: No Symptoms Hematologic/Lymphatic: Reports: No Symptoms Immunologic: Reports: No Symptoms - Physical Exam Exam: See Below Exam Limited By: No Limitations General Appearance: Alert, WD/WN, No Apparent Distress Eye Exam: Bilateral Eye: Normal Inspection Ears: Normal External Exam Nose: Normal Inspection Throat/Mouth: Normal Inspection Head Exam: Atraumatic, Normocephalic Neck: Normal Inspection, Supple, Non-Tender Respiratory/Chest: No Respiratory Distress, Lungs Clear, Normal Breath Sounds Cardiovascular: Normal Peripheral Pulses, Regular Rate, Rhythm, No Edema GI/Abdominal: Normal Bowel Sounds, Soft, Non-Tender (Female) Exam: Deferred Rectal (Female) Exam: Deferred Neuro Exam (Abbreviated): Alert, Oriented, CN II-XII Intact, Normal Cognition, Normal Gait Back Exam: Normal Inspection, Full Range of Motion Extremities: Normal Inspection, Normal Range of Motion, Non-Tender Psychiatric: Normal Affect, Normal Mood Skin Exam: Warm, Dry, Intact, Normal Color, No Rash Course - Vital Signs Text/Narrative:: 26 y.o.w.f, 18 wks, come to the ed due to headache off on in the past few days. Pt stated she took Tylenol which did not help. Pt is well known her in the ed due to frequent ED visits. No N/V/D or any other acute medical issues. PE: WNWD WF NAD mild tender neck Impression: Tension headache. Plan: D/C with instructions Departure - Departure Time of Disposition: 16:18 Disposition: Home, Self-Care 01 Condition: Good Clinical Impression: Tension headache Qualifiers: Weeks of gestation: 18 weeks Qualified Code(s): Z3A.18 - 18 weeks gestation of - Discharge Information Instructions: First Trimester of , [id number], General Headache Without Cause, [id number], Second Trimester of , [id number] Referrals: Selwyn Arceo MD [Primary Care Provider] - Forms: ED Department Discharge Additional Instructions: Please take tylenol 650 mg every 4 hours as needed, please ice to the affected areas, please f/u with your PMD, please come back to the ed if your symptoms get worse acutely
[2017-01-28 16:44] VITALS: BP 108/47
== END 2017-01-28 16:25 | disposition home or self-care (01) ==
LOC: FB.ED 16:02
DX: O99.352 Diseases of the nervous system complicating pregnancy, second trimester (principal); G44.209 Tension-type headache, unspecified, not intractable; G43.909 Migraine, unspecified, not intractable, without status migrainosus; E66.9 Obesity, unspecified; Z87.891 Personal history of nicotine dependence; Z88.0 Allergy status to penicillin; Z3A.18 18 weeks gestation of pregnancy
CPT/HCPCS: 99283; 99284

== ENCOUNTER 2017-02-25 17:25 | Emergency (ER) | payer MEDICARE, MEDICAID ==
[2017-02-25 17:41] VITALS: BP 116/66
[2017-02-25] MEDS ORDERED: Acetaminophen Soln 650 MG/20.3 ML UD Cup PO STA (17:45)
--- NOTE | 2017-02-25 17:49 | EDM.PDOC ---
ED HPI GENERAL MEDICAL PROBLEM - General Chief Complaint: Headache Stated Complaint: MIGRAINE Time Seen by Provider: 02/25/17 17:35 Source of Information: Reports: Patient, Family History Limitations: Reports: No Limitations - History of Present Illness INITIAL COMMENTS - FREE TEXT/NARRATIVE: 26 y.o.f came to gen headache 07/14 after pt took tylenol, before it was 8/10. No N/V/D or any or any other acute medical issues. 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 - Related Data Allergies Allergy/AdvReac Type Severity Reaction Status Date / Time Penicillins Allergy Hives Verified 02/25/17 17:29 Home Meds: Home Meds Pnv No.122/Iron/Folic Acid [ Multi Tablet] 1 tab PO DAILY 01/07/17 [ History] Past Medical History HEENT History: Reports: None Cardiovascular History: Reports: None Respiratory History: Reports: Bronchitis, Recurrent Gastrointestinal History: Reports: Cholelithiasis Genitourinary History: Reports: None 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 History: Musculoskeletal History: Reports: Other (See Below) Other Musculoskeletal History: RT LEG PAIN Neurological History: Reports: Migraines Psychiatric History: Reports: None Endocrine/Metabolic History: Reports: Obesity/BMI 30+ Hematologic History: Reports: Anemia, Blood Transfusion(s) Immunologic History: Reports: None Oncologic (Cancer) History: Reports: None Dermatologic History: Reports: None - Past Surgical History Head Surgeries/Procedures: Reports: None Female Surgical History: Reports: Section Social & Family History - Family History Family Medical History: Noncontributory OBGYN: Reports: Other (See Below) Other OBGYN Family History: No Control,. Sexually Active, no period for several months - Tobacco Use Smoking Status *Q: Former Smoker Years of Tobacco use: 5 Packs/Tins Daily: 0.5 Used Tobacco, but Quit: Yes Month Tobacco Last Used: unknown Second Hand Smoke Exposure: No - Caffeine Use Caffeine Use: Reports: Soda - Alcohol Use Days Per Week of Alcohol Use: 1 Number of Drinks Per Day: 2 Total Drinks Per Week: 2 - Recreational Drug Use Recreational Drug Use: No Drug Use in Last 12 Months: Yes Recreational Drug Type: Reports: Marijuana/Hashish ED ROS GENERAL - Review of Systems Review Of Systems: See Below Constitutional: Reports: No Symptoms HEENT: Reports: No Symptoms, Other (headache) Respiratory: Reports: No Symptoms Cardiovascular: Reports: No Symptoms Endocrine: Reports: No Symptoms GI/Abdominal: Reports: No Symptoms : Reports: No Symptoms Musculoskeletal: Reports: No Symptoms Skin: Reports: No Symptoms Neurological: Reports: Headache Psychiatric: Reports: No Symptoms Hematologic/Lymphatic: Reports: No Symptoms Immunologic: Reports: No Symptoms - Physical Exam Exam: See Below Exam Limited By: No Limitations General Appearance: Alert, Mild Distress Eye Exam: Bilateral Eye: Normal Inspection Ears: Normal External Exam Nose: Normal Inspection Throat/Mouth: Normal Inspection Head Exam: Atraumatic, Normocephalic Neck: Normal Inspection, Supple, Non-Tender Respiratory/Chest: No Respiratory Distress, Lungs Clear, Normal Breath Sounds, No Accessory Muscle Use Cardiovascular: Normal Peripheral Pulses, Regular Rate, Rhythm GI/Abdominal: Normal Bowel Sounds, Soft, Non-Tender, No Organomegaly (Female) Exam: Deferred Rectal (Female) Exam: Deferred Neuro Exam (Abbreviated): Alert, Oriented, CN II-XII Intact, Normal Cognition, Normal Gait, No Motor/Sensory Deficits Back Exam: Normal Inspection, Full Range of Motion Extremities: Normal Inspection, Normal Range of Motion, Non-Tender Psychiatric: Normal Affect, Normal Mood Skin Exam: Warm, Dry, Intact, Normal Color, No Rash Course - Vital Signs Text/Narrative:: 26 y.o.f came to gen headache 07/14 after pt took tylenol, before it was 12/14. No N/V/D or any or any other acute medical issues. Pt is well known in the ed due to her frequent visits PE: Tension like headache Impression: Tension headache, Tx: Tylenol Reexam: Improved Plan: D/C with instructions Last Recorded V/S: Last Vital Signs Temp 36.6 C 02/25/17 17:35 Pulse 95 02/25/17 17:35 Resp 18 02/25/17 17:35 BP 116/66 02/25/17 17:35 Pulse Ox 100 02/25/17 17:35 - Orders/Labs/Meds Orders: Active Orders 24 hr Category Date Time Status Cooling Warming Measures [RC] ASDIRECTED Care 02/25/17 17:46 Ordered Ice Bag [Ice Therapy] [OM.PC] Routine Oth 02/25/17 17:46 Ordered Meds: Medications Discontinued Medications Generic Name Dose Route Start Last Admin Trade Name Gregorio PRN Reason Stop Dose Admin Acetaminophen 500 mg 02/25/17 17:45 02/25/17 18:00 Tylenol PO 02/25/17 17:46 500 mg ONETIME STA Administration Departure - Departure Time of Disposition: 17:48 Disposition: Home, Self-Care 01 Condition: Good Clinical Impression: Tension type headache Qualifiers: Headache chronicity pattern: acute headache Intractability: not intractable Qualified Code(s): G44.209 - Tension-type headache, unspecified, not intractable - Discharge Information Referrals: Selwyn Arceo MD [Primary Care Provider] - Forms: ED Department Discharge Additional Instructions: please take tylenol for pain, apply ice packs to neck and head, please f/u w/ primary doctor, come back if your symptoms get worse acutely - My Orders Last 24 Hours: My Active Orders 02/25/17 17:46 Cooling Warming Measures [RC] ASDIRECTED Ice Bag [Ice Therapy] [OM.PC] Routine - Assessment/Plan Last 24 Hours: My Active Orders 02/25/17 17:46 Cooling Warming Measures [RC] ASDIRECTED Ice Bag [Ice Therapy] [OM.PC] Routine
== END 2017-02-25 18:00 | disposition home or self-care (01) ==
LOC: FB.ED 17:25
DX: O99.352 Diseases of the nervous system complicating pregnancy, second trimester (principal); G44.209 Tension-type headache, unspecified, not intractable; Z88.0 Allergy status to penicillin; Z79.899 Other long term (current) drug therapy
CPT/HCPCS: 99283; A9270

== ENCOUNTER 2017-03-11 08:51 | Emergency (ER) | payer MEDICARE, MEDICAID ==
--- NOTE | 2017-03-11 08:59 | EDM.PDOC ---
ED HPI GENERAL MEDICAL PROBLEM - General Stated Complaint: POSSIBLE EAR INFECTION/STREP Time Seen by Provider: 03/11/17 08:51 Source of Information: Reports: Patient History Limitations: Reports: No Limitations - History of Present Illness INITIAL COMMENTS - FREE TEXT/NARRATIVE: 26 y.o.w.f came to the ed due to r ear infection and sore throat, no F/C/N/V or any other acute medical issues. Onset Date: 03/10/17 Onset Time: 15:00 Duration: Day(s): Location: Reports: Face Quality: Reports: Ache, Burning Severity: Mild Improves with: Reports: Rest Worsens with: Reports: Eating Context: Reports: Other ([place]) Associated Symptoms: Reports: No Other Symptoms Left Ear Pain Score (Numeric/FACES): 5 - Related Data Allergies Allergy/AdvReac Type Severity Reaction Status Date / Time Penicillins Allergy Hives Verified 03/11/17 09:13 Home Meds: Home Meds Pnv No.122/Iron/Folic Acid [ Multi Tablet] 1 tab PO DAILY 01/07/17 [ History] Azithromycin [IJD: Azithromycin] 250 mg PO DAILY #6 tab 03/11/17 [Rx] Past Medical History HEENT History: Reports: None Cardiovascular History: Reports: None Respiratory History: Reports: Bronchitis, Recurrent Gastrointestinal History: Reports: Cholelithiasis Genitourinary History: Reports: None 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 History: Musculoskeletal History: Reports: Other (See Below) Other Musculoskeletal History: RT LEG PAIN Neurological History: Reports: Migraines Psychiatric History: Reports: None Endocrine/Metabolic History: Reports: Obesity/BMI 30+ Hematologic History: Reports: Anemia, Blood Transfusion(s) Immunologic History: Reports: None Oncologic (Cancer) History: Reports: None Dermatologic History: Reports: None - Past Surgical History Head Surgeries/Procedures: Reports: None Female Surgical History: Reports: Section Social & Family History - Family History Family Medical History: Noncontributory OBGYN: Reports: Other (See Below) Other OBGYN Family History: No Control,. Sexually Active, no period for several months - Tobacco Use Smoking Status *Q: Former Smoker Years of Tobacco use: 5 Packs/Tins Daily: 0.5 Used Tobacco, but Quit: Yes Month Tobacco Last Used: unknown Second Hand Smoke Exposure: No - Caffeine Use Caffeine Use: Reports: Soda - Alcohol Use Days Per Week of Alcohol Use: 1 Number of Drinks Per Day: 2 Total Drinks Per Week: 2 - Recreational Drug Use Recreational Drug Use: No Drug Use in Last 12 Months: Yes Recreational Drug Type: Reports: Marijuana/Hashish ED ROS ENT - Review of Systems Review Of Systems: See Below Constitutional: Reports: No Symptoms HEENT: Reports: Ear Pain, Throat Pain Respiratory: Reports: No Symptoms Cardiovascular: Reports: No Symptoms Endocrine: Reports: No Symptoms GI/Abdominal: Reports: No Symptoms : Reports: No Symptoms Musculoskeletal: Reports: No Symptoms Skin: Reports: No Symptoms Neurological: Reports: No Symptoms Psychiatric: Reports: No Symptoms Hematologic/Lymphatic: Reports: No Symptoms Immunologic: Reports: No Symptoms ED EXAM, ENT - Physical Exam Exam: See Below Exam Limited By: No Limitations General Appearance: Alert, WD/WN, No Apparent Distress Eye Exam: Bilateral Eye: Normal Inspection Ears: TM Bulging, TM Dullness, TM Erythema (right ear) Nose: Normal Inspection, Normal Mucousa, No Blood Mouth/Throat: Throat Pain Head: Atraumatic, Normocephalic Neck: Normal Inspection, Supple, Non-Tender, Full Range of Motion Respiratory/Chest: No Respiratory Distress, Lungs Clear, Normal Breath Sounds Cardiovascular: Normal Peripheral Pulses, Regular Rate, Rhythm, No Edema, No Gallop, No JVD GI/Abdominal: Normal Bowel Sounds, Soft, Non-Tender, No Organomegaly (Female) Exam: Deferred Rectal (Female) Exam: Deferred Back: Normal Inspection, Full Range of Motion Extremities: Normal Inspection, Normal Range of Motion Neurological: Alert, Oriented, CN II-XII Intact, Normal Cognition, Normal Gait Psychiatric: Normal Affect, Normal Mood Skin: Warm, Dry, Intact, Normal Color, No Rash Lymphatic: No Adenopathy Course - Vital Signs Text/Narrative:: 26 y.o.w.f came to the ed due to r ear infection and sore throat, no F/C/N/V or any other acute medical issues. PE: Pharyngitis, R OM Labs: Strp test neg Cx is pending Impression: OM, Pharyngitis Tx: A pack prescriptin Plan: D/C with instructions Last Recorded V/S: Last Vital Signs Temp 36.3 C 03/11/17 09:16 Pulse 85 03/11/17 09:16 Resp 18 03/11/17 09:16 BP 121/65 03/11/17 09:16 Pulse Ox 100 03/11/17 09:16 - Orders/Labs/Meds Orders: Active Orders 24 hr Category Date Time Status CULTURE STREP A CONFIRMATION [RM] Stat Lab 03/11/17 09:11 Results STREP SCRN A RAPID W CULT CONF [RM] Stat Lab 03/11/17 09:11 Received Departure - Departure Time of Disposition: 09:12 Disposition: Home, Self-Care 01 Condition: Good Clinical Impression: Pharyngitis Qualifiers: Pharyngitis/tonsillitis etiology: other specified organisms Qualified Code(s): J02.8 - Acute pharyngitis due to other specified organisms Otitis media Qualifiers: Otitis media type: other nonsuppurative Chronicity: acute Laterality: bilateral - Discharge Information Prescriptions: Azithromycin [IJD: Azithromycin] 250 mg PO DAILY #6 tab Referrals: Selwyn Arceo MD [Primary Care Provider] - Forms: ED Department Discharge Additional Instructions: Please take tylenol/advil for pain, please take the Abx as recommended, please f /u, come back if your symptoms get worse acutely. - My Orders Last 24 Hours: My Active Orders 03/11/17 09:11 CULTURE STREP A CONFIRMATION [RM] Stat STREP SCRN A RAPID W CULT CONF [RM] Stat - Assessment/Plan Last 24 Hours: My Active Orders 03/11/17 09:11 CULTURE STREP A CONFIRMATION [RM] Stat STREP SCRN A RAPID W CULT CONF [RM] Stat
[2017-03-11 09:25] VITALS: BP 121/65
== END 2017-03-11 09:30 | disposition home or self-care (01) ==
LOC: FB.ED 08:51
DX: O99.89 Other specified diseases and conditions complicating pregnancy, childbirth and the puerperium (principal); H66.93 Otitis media, unspecified, bilateral; J02.8 Acute pharyngitis due to other specified organisms; Z88.0 Allergy status to penicillin; Z87.891 Personal history of nicotine dependence; Z3A.24 24 weeks gestation of pregnancy
CPT/HCPCS: 87081; 87430; 99282

== ENCOUNTER 2017-03-21 15:54 | Emergency (ER) | payer MEDICARE, MEDICAID ==
--- NOTE | 2017-03-21 17:10 | EDM.PDOC ---
ED HPI GENERAL MEDICAL PROBLEM - General Chief Complaint: Genitourinary Problem Stated Complaint: UA Time Seen by Provider: 03/21/17 16:35 Source of Information: Reports: Patient History Limitations: Reports: No Limitations - History of Present Illness INITIAL COMMENTS - FREE TEXT/NARRATIVE: c/o burn with void x 1w has h/o UC with mixed tommie x 3 in past 6m [address] Arceo, last saw 2w ago, next apt in 2w no f/c/d no vag d/c - Related Data Allergies Allergy/AdvReac Type Severity Reaction Status Date / Time Penicillins Allergy Hives Verified 03/21/17 16:16 Home Meds: Home Meds Pnv No.122/Iron/Folic Acid [ Multi Tablet] 1 tab PO DAILY 01/07/17 [ History] Past Medical History HEENT History: Reports: Otitis Media Other HEENT History: rightsided diagnosed earlier today Cardiovascular History: Reports: None Respiratory History: Reports: Bronchitis, Recurrent Gastrointestinal History: Reports: Cholelithiasis Genitourinary History: Reports: None 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 History: Musculoskeletal History: Reports: Other (See Below) Other Musculoskeletal History: RT LEG PAIN Neurological History: Reports: Migraines Psychiatric History: Reports: None Endocrine/Metabolic History: Reports: Obesity/BMI 30+ Hematologic History: Reports: Anemia, Blood Transfusion(s) Immunologic History: Reports: None Oncologic (Cancer) History: Reports: None Dermatologic History: Reports: None - Infectious Disease History Infectious Disease History: Reports: Chicken Pox - Past Surgical History Head Surgeries/Procedures: Reports: None Female Surgical History: Reports: Section Social & Family History - Family History Family Medical History: Noncontributory OBGYN: Reports: Other (See Below) Other OBGYN Family History: No Control,. Sexually Active, no period for several months - Tobacco Use Smoking Status *Q: Former Smoker Years of Tobacco use: 5 Packs/Tins Daily: 0.5 Used Tobacco, but Quit: Yes Month Tobacco Last Used: unknown Second Hand Smoke Exposure: No - Caffeine Use Caffeine Use: Reports: Soda - Alcohol Use Days Per Week of Alcohol Use: 1 Number of Drinks Per Day: 2 Total Drinks Per Week: 2 - Recreational Drug Use Recreational Drug Use: No Drug Use in Last 12 Months: Yes Recreational Drug Type: Reports: Marijuana/Hashish ED ROS GENERAL - Review of Systems Review Of Systems: See Below Constitutional: Reports: No Symptoms HEENT: Reports: No Symptoms Respiratory: Reports: No Symptoms Cardiovascular: Reports: No Symptoms Endocrine: Reports: No Symptoms GI/Abdominal: Reports: No Symptoms : Reports: Dysuria Musculoskeletal: Reports: No Symptoms Skin: Reports: No Symptoms Neurological: Reports: No Symptoms Psychiatric: Reports: No Symptoms Hematologic/Lymphatic: Reports: No Symptoms Immunologic: Reports: No Symptoms ED EXAM, RENAL/ - Physical Exam Exam: See Below Exam Limited By: No Limitations General Appearance: Alert, WD/WN, No Apparent Distress Respiratory/Chest: No Respiratory Distress Cardiovascular: Regular Rate, Rhythm GI/Abdominal: Normal Bowel Sounds, Soft, Non-Tender, No Organomegaly, No Distention, No Mass Back Exam: Normal Inspection, Full Range of Motion. No: CVA Tenderness (R), CVA Tenderness (L) Course - Vital Signs Last Recorded V/S: Last Vital Signs Temp 36.6 C 03/21/17 15:55 Pulse 90 03/21/17 15:55 Resp 18 03/21/17 15:55 BP 124/60 03/21/17 15:55 Pulse Ox 100 03/21/17 15:55 - Orders/Labs/Meds Orders: Active Orders 24 hr Category Date Time Status CULTURE URINE [RM] Stat Lab 03/21/17 16:47 Ordered Labs: Laboratory Tests 03/21/17 Range/Units 16:19 Urine Color Yellow (YELLOW) Urine Appearance Slightly cloudy (CLEAR) Urine pH 6.0 (5.0-6.5) Ur Specific [place] 1.025 (1.010-1.025) Urine Protein Negative (NEGATIVE) mg/dL Urine Glucose (UA) Normal (NEGATIVE) mg/dL Urine Ketones 15 H (NEGATIVE) mg/dL Urine Occult Blood Trace (NEGATIVE) Urine Nitrite Negative (NEGATIVE) Urine Bilirubin Small H (NEGATIVE) Urine Urobilinogen 4 H (NEGATIVE) mg/dL Ur Leukocyte Esterase Large H (NEGATIVE) Urine RBC 10-20 H (0) Urine WBC 10-20 H (0) Ur Squamous Epith Cells Moderate H (NS,R,O) Urine Bacteria Moderate H (NS) - Re-Assessments/Exams Free Text/Narrative Re-Assessment/Exam: 03/21/17 17:09 u/a is contaminated, does not meet criteria for UTI, UC pending Departure - Departure Time of Disposition: 17:08 Disposition: Home, Self-Care 01 Condition: Good Clinical Impression: Dysuria - Discharge Information Referrals: Selwyn Arceo MD [Primary Care Provider] - Additional Instructions: Increase fluids. Keep appointment with Dr Arceo. See him earlier as necessary. - My Orders Last 24 Hours: My Active Orders 03/21/17 16:47 CULTURE URINE [RM] Stat - Assessment/Plan Last 24 Hours: My Active Orders 03/21/17 16:47 CULTURE URINE [RM] Stat
[2017-03-21 17:36] VITALS: BP 120/62
== END 2017-03-21 17:15 | disposition home or self-care (01) ==
LOC: FB.ED 15:54
DX: O99.89 Other specified diseases and conditions complicating pregnancy, childbirth and the puerperium (principal); R30.0 Dysuria; Z87.891 Personal history of nicotine dependence; Z88.0 Allergy status to penicillin; Z3A.26 26 weeks gestation of pregnancy
CPT/HCPCS: 81001; 87086; 99282; 99283

== ENCOUNTER 2017-03-22 16:59 | Emergency (ER) | payer MEDICARE, MEDICAID ==
--- NOTE | 2017-03-22 18:23 | EDM.PDOC ---
ED HPI GENERAL MEDICAL PROBLEM - General Chief Complaint: Genitourinary Problem Stated Complaint: PAINFUL URINATION Time Seen by Provider: 03/22/17 18:19 Source of Information: Reports: Patient History Limitations: Reports: No Limitations - History of Present Illness INITIAL COMMENTS - FREE TEXT/NARRATIVE: c/o dysuria pt still with burn with void, no abd pain, no d/c was here yesterday with a neg u/a, u/a neg again next apt with PCP is 04/06, requested to make it earlier no f/c/d urethral area Pain Score (Numeric/FACES): 8 - Related Data Allergies Allergy/AdvReac Type Severity Reaction Status Date / Time Penicillins Allergy Hives Verified 03/22/17 17:47 Home Meds: Home Meds Pnv No.122/Iron/Folic Acid [ Multi Tablet] 1 tab PO DAILY 01/07/17 [ History] Past Medical History HEENT History: Reports: Otitis Media Other HEENT History: rightsided diagnosed earlier today Cardiovascular History: Reports: None Respiratory History: Reports: Bronchitis, Recurrent Gastrointestinal History: Reports: Cholelithiasis Genitourinary History: Reports: None 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 History: Musculoskeletal History: Reports: Other (See Below) Other Musculoskeletal History: RT LEG PAIN Neurological History: Reports: Migraines Psychiatric History: Reports: None Endocrine/Metabolic History: Reports: Obesity/BMI 30+ Hematologic History: Reports: Anemia, Blood Transfusion(s) Immunologic History: Reports: None Oncologic (Cancer) History: Reports: None Dermatologic History: Reports: None - Infectious Disease History Infectious Disease History: Reports: Chicken Pox - Past Surgical History Head Surgeries/Procedures: Reports: None Female Surgical History: Reports: Section Social & Family History - Family History Family Medical History: Noncontributory OBGYN: Reports: Other (See Below) Other OBGYN Family History: No Control,. Sexually Active, no period for several months - Tobacco Use Smoking Status *Q: Never Smoker Years of Tobacco use: 5 Packs/Tins Daily: 0.5 Used Tobacco, but Quit: Yes Month Tobacco Last Used: unknown Second Hand Smoke Exposure: No - Caffeine Use Caffeine Use: Reports: None - Alcohol Use Days Per Week of Alcohol Use: 1 Number of Drinks Per Day: 2 Total Drinks Per Week: 2 - Recreational Drug Use Recreational Drug Use: No Drug Use in Last 12 Months: Yes Recreational Drug Type: Reports: Marijuana/Hashish ED ROS GENERAL - Review of Systems Review Of Systems: See Below Constitutional: Reports: No Symptoms HEENT: Reports: No Symptoms Respiratory: Reports: No Symptoms Cardiovascular: Reports: No Symptoms Endocrine: Reports: No Symptoms GI/Abdominal: Reports: No Symptoms : Reports: Dysuria Musculoskeletal: Reports: No Symptoms Skin: Reports: No Symptoms Neurological: Reports: No Symptoms Psychiatric: Reports: No Symptoms Hematologic/Lymphatic: Reports: No Symptoms Immunologic: Reports: No Symptoms ED EXAM, RENAL/ - Physical Exam Exam: See Below Exam Limited By: No Limitations General Appearance: Alert, WD/WN, No Apparent Distress GI/Abdominal: Soft, Non-Tender Back Exam: Normal Inspection, Full Range of Motion. No: CVA Tenderness (R), CVA Tenderness (L) Course - Vital Signs Last Recorded V/S: Last Vital Signs Temp 36.8 C 03/22/17 17:00 Pulse 87 03/22/17 17:00 Resp 16 03/22/17 17:00 BP 121/58 L 03/22/17 17:00 Pulse Ox 100 03/22/17 17:00 - Orders/Labs/Meds Labs: Laboratory Tests 03/22/17 Range/Units 17:40 Urine Color Yellow (YELLOW) Urine Appearance Slightly cloudy (CLEAR) Urine pH 5.0 (5.0-6.5) Ur Specific [place] 1.030 H (1.010-1.025) Urine Protein Negative (NEGATIVE) mg/dL Urine Glucose (UA) Normal (NEGATIVE) mg/dL Urine Ketones Negative (NEGATIVE) mg/dL Urine Occult Blood Negative (NEGATIVE) Urine Nitrite Negative (NEGATIVE) Urine Bilirubin Small H (NEGATIVE) Urine Urobilinogen 4 H (NEGATIVE) mg/dL Ur Leukocyte Esterase Negative (NEGATIVE) Urine RBC 0-5 (0) Urine WBC 0-5 (0) Ur Squamous Epith Cells Moderate H (NS,R,O) Urine Bacteria Moderate H (NS) Urine Mucus Moderate H (NS) Departure - Departure Time of Disposition: 18:20 Disposition: Home, Self-Care 01 Condition: Good Clinical Impression: Dysuria - Discharge Information Referrals: Selwyn Arceo MD [Primary Care Provider] - Additional Instructions: Your urinalysis does not show evidence of infection. However, it is very concentrated, which can cause stinging because the acidity increases when the urine become concentrated. Increasing fluids without caffeine will help relieve discomfort. See your doctor in the next 4 days.
[2017-03-22 18:47] VITALS: BP 114/59
== END 2017-03-22 18:45 | disposition home or self-care (01) ==
LOC: FB.ED 16:59
DX: O99.89 Other specified diseases and conditions complicating pregnancy, childbirth and the puerperium (principal); R30.0 Dysuria; Z88.0 Allergy status to penicillin; Z87.891 Personal history of nicotine dependence
CPT/HCPCS: 81001; 99282; 99283

== ENCOUNTER 2017-05-07 11:19 | Emergency (ER) | payer MEDICARE, MEDICAID ==
[2017-05-07 11:30] VITALS: BP 127/66
--- NOTE | 2017-05-08 00:08 | ER ---
DATE SEEN: 05/07/2017 TIME SEEN: 1135 hours. CHIEF COMPLAINT: Ear pain. HISTORY OF PRESENT ILLNESS: This is a 27-year-old female with pain in the right ear since yesterday, sharp pain, worse with movement of the earlobe, but no drainage. REVIEW OF SYSTEMS: No fever or sore throat. MEDICATIONS: Reviewed. PAST MEDICAL HISTORY: Currently , third trimester. PHYSICAL EXAMINATION: GENERAL: Afebrile, normotensive. EARS: External ears are normal. There is tenderness to the right radius tragus. Canal has purulent debris. TMs are intact x2. IMPRESSION: Otitis externa. PLAN: Cortisporin drops 3 times a day 2 drops for 3 days. Tylenol p.r.n. for pain. Follow up in the office as needed. /[id number] [id number]/DANTE
== END 2017-05-07 11:36 | disposition home or self-care (01) ==
LOC: FB.ED 11:19
DX: H60.91 Unspecified otitis externa, right ear (principal)
CPT/HCPCS: 99282

== ENCOUNTER 2017-05-12 12:57 | Emergency (ER) | payer MEDICARE, MEDICAID ==
[2017-05-12 13:21] VITALS: BP 117/61
--- NOTE | 2017-05-12 15:18 | EDM.PDOC ---
ED HPI GENERAL MEDICAL PROBLEM - General Chief Complaint: Genitourinary Problem Stated Complaint: BLADDER INFECTION PER PT Time Seen by Provider: 05/12/17 13:00 Source of Information: Reports: Patient, Family History Limitations: Reports: No Limitations - History of Present Illness INITIAL COMMENTS - FREE TEXT/NARRATIVE: 27 y.o f , in her 3rd trimester, came to the ed due to lower abdominal discomfort with painful urination. Pt was seen at [facility] for baby check, which was normal. No N/V/D or any other acute medical issues. BP 117/76 pulse 100 temp 36.4 pulse ox 98% on RA. Onset: Today Onset Date: 05/12/17 Onset Time: 12:00 Duration: Hour(s): Location: Reports: Pelvis Quality: Reports: Burning Severity: Mild Improves with: Reports: Rest Worsens with: Reports: Movement Associated Symptoms: Reports: No Other Symptoms - Related Data Allergies Allergy/AdvReac Type Severity Reaction Status Date / Time Penicillins Allergy Hives Verified 05/12/17 14:14 Home Meds: Home Meds Pnv No.122/Iron/Folic Acid [ Multi Tablet] 1 tab PO DAILY 01/07/17 [ History] Past Medical History HEENT History: Reports: Otitis Media Other HEENT History: rightsided diagnosed earlier today Cardiovascular History: Reports: None Respiratory History: Reports: None Gastrointestinal History: Reports: Cholelithiasis Genitourinary History: Reports: None 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: , 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 Other OB/BYN History: Musculoskeletal History: Reports: Other (See Below) Other Musculoskeletal History: RT LEG PAIN Neurological History: Reports: Migraines Psychiatric History: Reports: None Endocrine/Metabolic History: Reports: Obesity/BMI 30+ Hematologic History: Reports: Anemia, Blood Transfusion(s) Immunologic History: Reports: None Oncologic (Cancer) History: Reports: None Dermatologic History: Reports: None - Infectious Disease History Infectious Disease History: Reports: Chicken Pox - Past Surgical History Head Surgeries/Procedures: Reports: None Female Surgical History: Reports: Section Oncologic Surgical History: Reports: None Social & Family History - Family History Family Medical History: Noncontributory OBGYN: Reports: , Other (See Below) Other OBGYN Family History: No Control,. Sexually Active, no period for several months Musculoskeletal: Reports: None Neurological: Reports: Seizure Psychiatric: Reports: None Endocrine/Metabolic: Reports: Diabetes, Type I, Diabetes, type II Hematologic: Reports: None Oncologic: Reports: Liver, Renal - Tobacco Use Smoking Status *Q: Never Smoker Years of Tobacco use: 5 Packs/Tins Daily: 0.5 Used Tobacco, but Quit: Yes Month Tobacco Last Used: unknown Second Hand Smoke Exposure: No - Caffeine Use Caffeine Use: Reports: Coffee, Soda - Alcohol Use Days Per Week of Alcohol Use: 1 Number of Drinks Per Day: 2 Total Drinks Per Week: 2 - Recreational Drug Use Recreational Drug Use: No Drug Use in Last 12 Months: Yes Recreational Drug Type: Reports: Marijuana/Hashish ED ROS GENERAL - Review of Systems Review Of Systems: See Below Constitutional: Reports: No Symptoms HEENT: Reports: No Symptoms Respiratory: Reports: No Symptoms Cardiovascular: Reports: No Symptoms Endocrine: Reports: No Symptoms GI/Abdominal: Reports: No Symptoms : Reports: Dysuria Musculoskeletal: Reports: No Symptoms Skin: Reports: No Symptoms Neurological: Reports: No Symptoms Psychiatric: Reports: No Symptoms Hematologic/Lymphatic: Reports: No Symptoms Immunologic: Reports: No Symptoms ED EXAM, GI/ABD - Physical Exam Exam: See Below Exam Limited By: No Limitations General Appearance: Alert, WD/WN, No Apparent Distress Eyes: Bilateral: Normal Appearance Ears: Normal External Exam, Normal Canal Nose: Normal Inspection Throat/Mouth: Normal Inspection Head: Atraumatic, Normocephalic Neck: Normal Inspection, Supple, Non-Tender Respiratory/Chest: No Respiratory Distress, Lungs Clear Cardiovascular: Normal Peripheral Pulses, Regular Rate, Rhythm GI/Abdominal Exam: Normal Bowel Sounds, Soft, Non-Tender (Female) Exam: Deferred Rectal (Female) Exam: Deferred Back Exam: Normal Inspection Extremities: Normal Inspection, Normal Range of Motion, Non-Tender Neurological: Alert, Oriented, CN II-XII Intact, Normal Cognition, Normal Gait Psychiatric: Normal Affect Skin Exam: Warm, Dry, Intact Lymphatic: No Adenopathy Course - Vital Signs Text/Narrative:: 27 y.o f , in her 3rd trimester, came to the ed due to lower abdominal discomfort with painful urination. Pt was seen at [facility] for baby check, which was normal. No N/V/D or any other acute medical issues. BP 117/76 pulse 100 temp 36.4 pulse ox 98% on RA. PE: Painfull urination LABS UA neg for UTI Weel baby check was neg Impression: 3rd trimaster with neg well baby check, Dysuria symptoms Plan: D/C with instructions Last Recorded V/S: Last Vital Signs Temp 36.7 C 05/12/17 13:00 Pulse 100 05/12/17 13:00 Resp 18 05/12/17 13:00 BP 117/61 05/12/17 13:00 Pulse Ox 97 05/12/17 13:00 - Orders/Labs/Meds Labs: Laboratory Tests 05/12/17 Range/Units 14:10 Urine Color Yellow (YELLOW) Urine Appearance Clear (CLEAR) Urine pH 7.0 H (5.0-6.5) Ur Specific [place] 1.015 (1.010-1.025) Urine Protein Negative (NEGATIVE) mg/dL Urine Glucose (UA) Normal (NEGATIVE) mg/dL Urine Ketones Negative (NEGATIVE) mg/dL Urine Occult Blood Negative (NEGATIVE) Urine Nitrite Negative (NEGATIVE) Urine Bilirubin Negative (NEGATIVE) Urine Urobilinogen 1 H (NEGATIVE) mg/dL Ur Leukocyte Esterase Negative (NEGATIVE) Urine RBC 0-5 (0) Urine WBC 0-5 (0) Ur Squamous Epith Cells Moderate H (NS,R,O) Urine Bacteria Few H (NS) Departure - Departure Time of Disposition: 15:17 Disposition: Home, Self-Care 01 Condition: Good Clinical Impression: Dysuria during Qualifiers: Trimester: third trimester Qualified Code(s): O26.893 - Other specified related conditions, third trimester - Discharge Information Instructions: Dysuria Referrals: Selwyn Arceo MD [Primary Care Provider] - Forms: ED Department Discharge Additional Instructions: Please take tylenol for pain. Drink plenty of water. Follow up with primary care provider if not better in a few days
== END 2017-05-12 15:19 | disposition home or self-care (01) ==
LOC: FB.ED 12:57
DX: O26.893 Other specified pregnancy related conditions, third trimester (principal); O99.283 Endocrine, nutritional and metabolic diseases complicating pregnancy, third trimester; E03.9 Hypothyroidism, unspecified; Z88.0 Allergy status to penicillin; Z3A.33 33 weeks gestation of pregnancy
CPT/HCPCS: 81001; 99283

== ENCOUNTER 2017-06-02 19:40 | Emergency (ER) | payer MEDICARE, MEDICAID ==
--- NOTE | 2017-06-02 20:21 | EDM.PDOC ---
ED HPI GENERAL MEDICAL PROBLEM - General Stated Complaint: RASHES ALL BODY Time Seen by Provider: 06/02/17 19:40 Source of Information: Reports: Patient, Family History Limitations: Reports: No Limitations - History of Present Illness INITIAL COMMENTS - FREE TEXT/NARRATIVE: 27 y.o.NA maren came to the ed because of a rash at her left and right thigh for several weeks. Pt was dx'd wit scabies at one time and underwent Tx for that without help. Pt denies any other acute medical issues BP 129/93, pulse 78 temp 36.9 Onset Date: 05/20/17 Onset Time: 08:00 Duration: Week(s):, Intermittent Location: Reports: Upper Extremity, Left, Upper Extremity, Right Quality: Reports: Other (itching) Severity: Mild Improves with: Reports: None Worsens with: Reports: None Associated Symptoms: Reports: No Other Symptoms - Related Data Allergies Allergy/AdvReac Type Severity Reaction Status Date / Time Penicillins Allergy Hives Verified 06/02/17 20:18 Home Meds: Home Meds Pnv No.122/Iron/Folic Acid [ Multi Tablet] 1 tab PO DAILY 01/07/17 [ History] Past Medical History HEENT History: Reports: Otitis Media Other HEENT History: rightsided diagnosed earlier today Cardiovascular History: Reports: None Respiratory History: Reports: None Gastrointestinal History: Reports: Cholelithiasis Genitourinary History: Reports: None 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: , 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 Other OB/BYN History: Musculoskeletal History: Reports: Other (See Below) Other Musculoskeletal History: RT LEG PAIN Neurological History: Reports: Migraines Psychiatric History: Reports: None Endocrine/Metabolic History: Reports: Obesity/BMI 30+ Hematologic History: Reports: Anemia, Blood Transfusion(s) Immunologic History: Reports: None Oncologic (Cancer) History: Reports: None Dermatologic History: Reports: None - Infectious Disease History Infectious Disease History: Reports: Chicken Pox - Past Surgical History Head Surgeries/Procedures: Reports: None Female Surgical History: Reports: Section Oncologic Surgical History: Reports: None Social & Family History - Family History Family Medical History: Noncontributory OBGYN: Reports: , Other (See Below) Other OBGYN Family History: No Control,. Sexually Active, no period for several months Musculoskeletal: Reports: None Neurological: Reports: Seizure Psychiatric: Reports: None Endocrine/Metabolic: Reports: Diabetes, Type I, Diabetes, type II Hematologic: Reports: None Oncologic: Reports: Liver, Renal - Tobacco Use Smoking Status *Q: Never Smoker Years of Tobacco use: 5 Packs/Tins Daily: 0.5 Used Tobacco, but Quit: Yes Month Tobacco Last Used: unknown Second Hand Smoke Exposure: No - Caffeine Use Caffeine Use: Reports: Coffee, Soda - Alcohol Use Days Per Week of Alcohol Use: 1 Number of Drinks Per Day: 2 Total Drinks Per Week: 2 - Recreational Drug Use Recreational Drug Use: No Drug Use in Last 12 Months: Yes Recreational Drug Type: Reports: Marijuana/Hashish ED ROS GENERAL - Review of Systems Review Of Systems: See Below Constitutional: Reports: No Symptoms HEENT: Reports: No Symptoms Respiratory: Reports: No Symptoms Cardiovascular: Reports: No Symptoms Endocrine: Reports: No Symptoms GI/Abdominal: Reports: No Symptoms : Reports: No Symptoms Musculoskeletal: Reports: No Symptoms Skin: Reports: Pruritis (of both thighs.) Neurological: Reports: No Symptoms Psychiatric: Reports: No Symptoms Hematologic/Lymphatic: Reports: No Symptoms Immunologic: Reports: No Symptoms ED EXAM, SKIN/RASH Exam: See Below Exam Limited By: No Limitations General Appearance: Alert, WD/WN, No Apparent Distress Eye Exam: Bilateral Eye: Normal Inspection Ears: Normal External Exam Nose: Normal Inspection, Normal Mucosa Throat/Mouth: Normal Inspection Head: Atraumatic, Normocephalic Neck: Normal Inspection Respiratory/Chest: No Respiratory Distress, Lungs Clear Cardiovascular: Normal Peripheral Pulses, Regular Rate, Rhythm, No Edema, No Gallop Peripheral Pulses: 1+: Radial (R) GI/Abdominal: Normal Bowel Sounds (Female) Exam: Deferred Rectal (Female) Exam: Deferred Back Exam: Normal Inspection, Full Range of Motion Extremities: Normal Inspection, Normal Range of Motion, Normal Capillary Refill , Pedal Edema Neurological: Alert, Oriented, CN II-XII Intact, Normal Cognition, Normal Gait, No Motor/Sensory Deficits Psychiatric: Normal Affect, Normal Mood Skin: Warm, Dry, Intact, Normal Color, Other (prurutus of both thighs, na rash seen) Lymphatic: No Adenopathy Course - Vital Signs Text/Narrative:: 27 y.o.NA f came to the ed because of a rash at her left and right thigh for several weeks. Pt was dx'd wit scabies at one time and underwent Tx for that without help. Pt denies any other acute medical issues BP 129/93, pulse 78 temp 36.9 PE: WNWD NA female with pruritis both thighs Impression: pruritus of lower extremities, cause not determined Tx: Hydrocortison cream 0.1 % Plan: D/C with instructions Last Recorded V/S: Last Vital Signs Temp 36.4 C 06/02/17 20:31 Pulse 78 06/02/17 20:31 Resp 17 06/02/17 20:31 BP 125/82 06/02/17 20:31 Pulse Ox 100 06/02/17 20:31 Departure - Departure Time of Disposition: 20:19 Disposition: Home, Self-Care 01 Condition: Good Clinical Impression: Itching with irritation - Discharge Information Instructions: Pruritus Referrals: Joan Worrell MD [Primary Care Provider] - Forms: ED Department Discharge Additional Instructions: Please apply Hydrocortisone cream 1% to the affected area twice daily, please f/ u, come back if your symptoms get worse acutely
[2017-06-02 20:31] VITALS: BP 125/82
== END 2017-06-02 20:31 | disposition home or self-care (01) ==
LOC: FB.ED 19:40
DX: L29.9 Pruritus, unspecified (principal); Z87.891 Personal history of nicotine dependence; Z88.0 Allergy status to penicillin; Z79.899 Other long term (current) drug therapy
CPT/HCPCS: 99282

== ENCOUNTER 2017-06-22 06:57 | Inpatient (IN) | payer MEDICARE, MEDICAID ==
--- NOTE | 2017-06-21 21:35 | PCM.LDHP ---
L&D History of Present Illness - General Date of Service: 06/21/17 Admit Problem/Dx: Patient Status Order with Admit Dx/Problem 06/22/17 07:39 Patient Status [ADT] Routine Admission Diagnosis/Problem Admission Diagnosis/Problem History of section Source of Information: Patient, Old Records History Limitations: Reports: No Limitations - History of Present Illness Introduction:: 27 yo female , admitted for an elective C section at 38 6/7. She also has Mild Pre-ecclpasia,making it necessary for delivery before 39 weeks. She had a previous section in 2011 due to Multiple gestation. 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 OB/BYN History: Musculoskeletal History: Reports: Other (See Below) Other Musculoskeletal History: RT LEG PAIN Neurological History: Reports: Migraines Psychiatric History: Reports: None Endocrine/Metabolic History: Reports: Obesity/BMI 30+ Hematologic History: Reports: Anemia, Blood Transfusion(s) Immunologic History: Reports: None Oncologic (Cancer) History: Reports: None Dermatologic History: Reports: None - Infectious Disease History Infectious Disease History: Reports: Chicken Pox - Past Surgical History Head Surgeries/Procedures: Reports: None GI Surgical History: Reports: Cholecystectomy Female Surgical History: Reports: Section Oncologic Surgical History: Reports: None Social & Family History - Family History Family Medical History: Noncontributory OBGYN: Reports: , Other (See Below) Other OBGYN Family History: No Control,. Sexually Active, no period for several months Musculoskeletal: Reports: None Neurological: Reports: Seizure Psychiatric: Reports: None Endocrine/Metabolic: Reports: Diabetes, Type I, Diabetes, type II Hematologic: Reports: None Oncologic: Reports: Liver, Renal - Tobacco Use Smoking Status *Q: Former Smoker Years of Tobacco use: 5 Packs/Tins Daily: 0.2 Used Tobacco, but Quit: Yes Month Tobacco Last Used: cannot remember Second Hand Smoke Exposure: No - Caffeine Use Caffeine Use: Reports: Coffee, Soda - Alcohol Use Days Per Week of Alcohol Use: 1 Number of Drinks Per Day: 2 Total Drinks Per Week: 2 - Recreational Drug Use Recreational Drug Use: No Drug Use in Last 12 Months: Yes Recreational Drug Type: Reports: Marijuana/Hashish H&P Review of Systems - Review of Systems: Review Of Systems: See Below General: Reports: No Symptoms HEENT: Reports: No Symptoms Pulmonary: Reports: No Symptoms Cardiovascular: Reports: No Symptoms Gastrointestinal: Reports: No Symptoms Genitourinary: Reports: No Symptoms Musculoskeletal: Reports: No Symptoms Skin: Reports: No Symptoms Psychiatric: Reports: No Symptoms Neurological: Reports: No Symptoms Hematologic/Lymphatic: Reports: No Symptoms Immunologic: Reports: No Symptoms L&D Exam - Exam Exam: See Below - Exam General: Alert, Oriented HEENT: PERRLA, Conjunctiva Clear, EACs Clear, EOMI, Hearing Intact, Mucosa Moist & Santo, Nares Patent, Normal Nasal Septum, Posterior Pharynx Clear, TMs Clear Neck: Supple, Trachea Midline Lungs: Clear to Auscultation, Normal Respiratory Effort Cardiovascular: Regular Rate, Regular Rhythm GI/Abdominal Exam: Normal Bowel Sounds, Soft, Non-Tender, No Organomegaly, No Distention, No Abnormal Bruit, No Mass, Pelvis Stable Rectal Exam: Normal Exam, Normal Rectal Tone Genitourinary: Normal external exam, Normal bimanual exam, Normal speculum exam Back Exam: Normal Inspection, Full Range of Motion Extremities: Normal Inspection, Normal Range of Motion, Non-Tender, No Pedal Edema, Normal Capillary Refill Skin: Warm, Dry, Intact Neurological: Cranial Nerves Intact, Reflexes Equal Bilateral Psychiatric: Alert, Normal Affect, Normal Mood - Problem List (1) Term SNOMED Code(s): 44365568 ICD Code: Z34.80 - ENCOUNTER FOR SUPRVSN OF NORMAL , UNSP TRIMESTER Status: Acute (2) Pre-eclampsia SNOMED Code(s): 152617036 ICD Code: O14.90 - UNSPECIFIED PRE-ECLAMPSIA, UNSPECIFIED TRIMESTER Status : Acute Qualifiers: Trimester: third trimester Qualified Code(s): O14.93 - Unspecified pre- eclampsia, third trimester (3) H/O: SNOMED Code(s): 560226175 ICD Code: Z98.891 - HISTORY OF UTERINE SCAR FROM PREVIOUS SURGERY Status: Acute (4) Obesity affecting SNOMED Code(s): 386376440376 ICD Code: O99.210 - OBESITY COMPLICATING , UNSPECIFIED TRIMESTER Status: Acute Qualifiers: Trimester: third trimester Qualified Code(s): O99.213 - Obesity complicating , third trimester Problem List Initiated/Reviewed/Updated: Yes Orders Last 24hrs: Active Orders 24 hr Category Date Time Status Patient Status [ADT] Routine ADT 06/22/17 07:39 Active Antiembolic Devices [RC] .Routine Care 06/22/17 07:39 Active Mccall Catheter Insertion [Insert Urinary Catheter] [OM. Care 06/22/17 07:00 Ordered PC] Q24H Mccall Catheter Insertion [Insert Urinary Catheter] [OM. Care 06/23/17 07:00 Ordered PC] Q24H RT Incentive Spirometry [RC] ASDIRECTED Care 06/22/17 07:39 Active Urinary Catheter Assessment [RC] QSHIFT Care 06/21/17 14:42 Active VTE/DVT Education [RC] Click to Edit Care 06/22/17 07:39 Active Verify Patient Consent Obtain [RC] ASDIRECTED Care 06/22/17 07:39 Active CBC WITH AUTO DIFF [HEME] Routine Lab 06/22/17 07:39 Ordered TYPE AND SCREEN [BBK] Routine Lab 06/22/17 07:39 Ordered Lactated Ringers [Ringers, Lactated] 1,000 ml Med 06/22/17 07:39 Active IV ASDIRECTED Sodium Chloride 0.9% [Saline Flush] Med 06/22/17 07:39 Active 10 ml FLUSH ASDIRECTED PRN ceFAZolin [Ancef] 3 gm Med 06/22/17 07:30 Active Sodium Chloride 0.9% [Normal Saline] 100 ml IV ONETIME DVT/VTE Prophylaxis Reflex [OM.PC] Routine Oth 06/22/17 07:39 Ordered Peripheral IV Insertion Adult [OM.PC] Routine Oth 06/22/17 07:39 Ordered Sequential Compression Device [OM.PC] Routine Oth 06/22/17 07:39 Ordered Resuscitation Status Routine Resus Stat 06/21/17 14:06 Ordered Medication Orders Cefazolin Sodium 3 gm/ Sodium (Chloride) 100 mls @ 200 mls/hr IV ONETIME ONE Stop: 06/22/17 07:59 Lactated Ringer's (Ringers, Lactated) 1,000 mls @ 125 mls/hr IV ASDIRECTED MARSHA Sodium Chloride (Saline Flush) 10 ml FLUSH ASDIRECTED PRN PRN Reason: Keep Vein Open Assessment/Plan Comment:: I have reviewed risks,benefits and reasonable alternatives to the repeat C section. She agrees to proceed. Will keep an eye on BP. No need for Mag,unless she develops severe features of Pre-ecclapsia or Ecclampsia. Obesity makes the delivery moderately risky as well.
[2017-06-22] MEDS ORDERED: Citric Acid/Sodium Citrate Solution 30 ML Cup PO ONE (07:16)
[2017-06-22] MEDS ORDERED: Scopolamine 1.5 MG Transdermal Patch TOP ONE (07:16)
[2017-06-22] MEDS ORDERED: Sodium Chloride 0.9% 10 ML Syringe FLUSH PRN (07:39)
[2017-06-22] MEDS ORDERED: Lactated Ringers 1,000 ML IV SCH (07:39)
[2017-06-22] MEDS ORDERED: ePHEDrine 50 MG/ML SDV IV ONE (09:30)
[2017-06-22] MEDS ORDERED: Lactated Ringers 1,000 ML IV ONE (09:30)
[2017-06-22] MEDS ORDERED: Bupivacaine 0.75%/D5W 2 ML Amp ISPINAL ONE (09:30)
[2017-06-22] MEDS ORDERED: Morphine PF 10 MG/10 ML SDV ONE (09:30)
[2017-06-22] MEDS ORDERED: Oxytocin 10 Units/1 ML SDV IV ONE ×2 (09:30)
[2017-06-22] MEDS ORDERED: Promethazine 6.25 MG in Sodium Chloride 0.9% 50 ML IV PRN (10:41)
[2017-06-22] MEDS ORDERED: Ondansetron 4 MG/2 ML SDV IVPUSH PRN (10:41)
[2017-06-22] MEDS ORDERED: Nalbuphine 10 MG/1 ML Vial IVPUSH PRN (10:41)
[2017-06-22] MEDS ORDERED: Morphine 2 MG/ML Syringe IVPUSH PRN ×2 (10:41→11:07)
[2017-06-22] MEDS ORDERED: Naloxone 0.4 MG/ML SDV IVPUSH PRN ×2 (10:41→10:45)
[2017-06-22] MEDS ORDERED: diphenhydrAMINE 50 MG/ML SDV IV PRN (10:41)
[2017-06-22] MEDS ORDERED: Ketorolac 15 MG/ML SDV IVPUSH PRN (10:41)
[2017-06-22] MEDS ORDERED: diphenhydrAMINE 50 MG/ML SDV IVPUSH PRN (10:45)
[2017-06-22] MEDS ORDERED: ePHEDrine 50 MG/ML SDV IVPUSH PRN (10:45)
[2017-06-22] MEDS: Lactated Ringers 1,000 ML IV SCH ×3 (13:37→21:30)
--- NOTE | 2017-06-22 19:44 | OR ---
DATE OF OPERATION: 06/22/2017 SURGEON: Selwyn Arceo MD PROCEDURE PERFORMED: Low transverse , repeat. PREOPERATIVE DIAGNOSES: 1. Repeat , term . 2. Preeclampsia. POSTOPERATIVE DIAGNOSIS: Repeat , term . ANESTHESIA: Epidural. ESTIMATED BLOOD LOSS: 700 mL. COMPLICATIONS: None. CONDITION: Stable. DRAINS: Mccall catheter. INDICATIONS: This is a 27-year-old, G4, P3, was admitted for repeat at 38 weeks and 5 days because of a previous and mild preeclampsia. The patient accepted the risks and benefits of this procedure. She asked us to proceed. Her written consent was signed with the patient knowing the facts of the possible risks and complications associated with it. PROCEDURE DETAILS: The patient was taken to the OR where the epidural anesthesia was reinforced. She was prepped and draped in the usual fashion for the procedure. After we confirmed adequate epidural, a scalpel was used to make a transverse incision in the previous scar in the lower abdominal wall. This incision was carried down to the level of the fascia, which was also transversely incised. After adequate hemostasis, the fascia was bluntly and sharply from the underlying rectus muscles using Jimmy clamps. The rectus muscle was in the midline exposing the peritoneum. This was carefully grasped with hemostats and entered up and down using Metzenbaum scissors. A bladder blade was placed in the lower pole of the incision to protect the bladder. The uterus was palpated and inspected. A thin low uterine segment was noted. Vertex presentation was confirmed. A scalpel was then utilized to make a transverse or Larson incision in the lower uterine wall. Clear fluid was noted upon entering the amniotic space. At around 1022 hours, a term viable male infant was delivered through the incision. He had spontaneous respirations and cried instantly. The cord was clamped and cut and he was delivered off the field to the waiting nurses. A baby boy was subsequently signed. Assigned scores of 9 and 9 at 1 and 5 minutes. His weight is pending at the time of this dictation. The placenta was manually extracted from the endometrium. An Armytage forceps were used on the right margin of the incision to achieve hemostasis. The uterus was delivered into the operative field. The endometrial cavity was wiped clean with a moist lap pad. The uterine incision was then closed in 2 layered fashion with 0 PDS suture, with the 1st layer interlocking and the 2nd layer imbricating. Two additional stitches of 2-0 Vicryl suture were utilized in a [id number] format to achieve adequate hemostasis. The uterus was then rotated forward. Normal tubes and ovaries were noted on both sides and irrigation was performed. It was then returned to the usual normal position in the abdominal cavity. Sponge and instrument count was performed for the 1st time at this point and found to be correct. The pelvis and anterior uterine space were then irrigated with saline solution and suctioned dry. The rectus muscles were stabilized across the midline. The subcutaneous tissue and fascia were closed with a running 0 Vicryl suture beginning at the lateral margins and overlapping at the midline. No active bleeding was noted. The skin and Fredo's fascia were then closed with a running 3-0 plain Vicryl stitch. The incision was cleansed and sterilely dressed. The patient was transferred to the recovery room in stable condition. Estimated blood loss was about 700 mL and the patient got 3 g of Ancef a few minutes before the operation. The sponge and instrument counts were performed 2 more times during closure and found to be correct each time. I should mention that the primary surgeon is Dr. Arceo and assisting surgeon was Dr. Helton. /[id number] KUN/[id number]
[2017-06-23] MEDS: Lactated Ringers 1,000 ML IV SCH ×2 (01:39→05:35)
[2017-06-23] MEDS ORDERED: Acetaminophen 325 MG Tab PO PRN (08:01)
--- NOTE | 2017-06-23 08:40 | PCM.PNPP ---
- General Info Date of Service: 06/23/17 Subjective Update: Has some dizziness. Not passed gas. Pain well controlled. Tolerating oral liquid - Review of Systems HEENT: Reports: No Symptoms Pulmonary: Reports: No Symptoms Cardiovascular: Reports: No Symptoms Gastrointestinal: Reports: No Symptoms Genitourinary: Reports: No Symptoms - General Info Date of Service: 06/23/17 - Patient Data Vital Signs - Most Recent: Last Vital Signs Temp 98.3 F 06/23/17 00:00 Pulse 82 06/23/17 00:00 Resp 18 06/23/17 00:00 BP 114/61 06/23/17 00:00 Pulse Ox 99 06/23/17 00:00 Weight - Most Recent: 130.635 kg I&O - Last 24 Hours: Intake & Output 06/22/17 06/23/17 06/23/17 22:59 06:59 14:59 Intake Total 1000 4365 Output Total 150 1400 Balance 850 2965 Lab Results - Last 24 Hours: Laboratory Results - last 24 hr 06/22/17 06/23/17 Range/Units 08:15 06:20 WBC 11.6 (4.5-12.0) X10-3/uL RBC 3.01 L (3.23-5.20) x10(6)uL Hgb 7.8 L (11.5-15.5) g/dL Hct 23.7 L (30.0-51.3) % MCV 78.6 L (80-96) fL MCH 25.9 L (27.7-33.6) pg MCHC 32.9 (32.2-35.4) g/dL RDW 14.9 (11.5-15.5) % Plt Count 135 (125-369) X10(3)uL Blood Type A POSITIVE Gel Antibody Screen Negative Med Orders - Current: Current Medications Acetaminophen (Tylenol) 650 mg PO Q4H PRN PRN Reason: Pain Diphenhydramine HCl (Benadryl) 25 mg IVPUSH Q6H PRN PRN Reason: Itching or Nausea Last Admin: 06/22/17 23:44 Dose: 25 mg Enoxaparin Sodium (Lovenox) 40 mg SUBCUT Q24H MARSHA Ephedrine Sulfate (Ephedrine Sulfate) 5 mg IVPUSH ASDIRECTED PRN PRN Reason: Other Lactated Ringer's (Ringers, Lactated) 1,000 mls @ 125 mls/hr IV ASDIRECTED [facility] Last Admin: 06/22/17 07:45 Dose: 125 mls/hr Promethazine HCl 6.25 mg/ (Sodium Chloride) 50.25 mls @ 200 mls/hr IV Q6H PRN PRN Reason: Nausea/Vomiting Lactated Ringer's (Ringers, Lactated) 1,000 mls @ 250 mls/hr IV ASDIRECTED [facility] Last Admin: 06/23/17 05:35 Dose: 250 mls/hr Miscellaneous Information (Remove Patch) 1 ea TRDERM BEDTIME [facility] Morphine Sulfate (Morphine) 2 mg IVPUSH Q1H PRN PRN Reason: Pain Nalbuphine HCl (Nubain) 10 mg IVPUSH Q1H PRN PRN Reason: Pruritus Naloxone HCl (Narcan) 0.1 mg IVPUSH ONETIME PRN PRN Reason: Oversedation Naloxone HCl (Narcan) 0.1 mg IVPUSH ONETIME PRN PRN Reason: Respiratory Depression Ondansetron HCl (Zofran) 4 mg IVPUSH Q6H PRN PRN Reason: Nausea/Vomiting Sodium Chloride (Saline Flush) 10 ml FLUSH ASDIRECTED PRN PRN Reason: Keep Vein Open Discontinued Medications Citric Acid/Sodium Citrate (Bicitra Solution) 30 ml PO ONETIME ONE Stop: 06/22/17 07:17 Last Admin: 06/22/17 09:28 Dose: 30 ml Diphenhydramine HCl (Benadryl) 25 mg IV ONETIME PRN PRN Reason: Pruritus Cefazolin Sodium 3 gm/ Sodium (Chloride) 100 mls @ 200 mls/hr IV ONETIME ONE Stop: 06/22/17 07:59 Last Admin: 06/22/17 09:27 Dose: 200 mls/hr Ketorolac Tromethamine (Toradol) 15 mg IVPUSH Q6H PRN PRN Reason: Pain Stop: 06/27/17 10:44 Morphine Sulfate (Morphine) 2 mg IVPUSH Q3M PRN PRN Reason: Abdominal Pain Scopolamine (Transderm-Scop) 1.5 mg TOP ONETIME ONE Stop: 06/22/17 07:17 Last Admin: 06/22/17 08:00 Dose: 1.5 mg - Infant Interaction Support Person: Other (see below) - Recovery Exam Fundal Tone: Firm Fundal Level: At Umbilicus Fundal Placement: Midline Lochia Amount: Small Lochia Color: Rubra/Red Perineum Description: Intact, Minimal Bruising/Swelling Episiotomy/Laceration: None Bladder Status: Indwelling Catheter in Place Urinary Elimination: Indwelling Catheter - Exam General: Alert, Oriented HEENT: Pupils Equal Neck: Supple Lungs: Clear to Auscultation, Normal Respiratory Effort Cardiovascular: Regular Rate, Regular Rhythm GI/Abdominal Exam: Normal Bowel Sounds, Soft, Non-Tender, No Organomegaly, No Distention, No Abnormal Bruit, No Mass, Pelvis Stable Extremities: Normal Inspection, Normal Range of Motion, Non-Tender, No Pedal Edema, Normal Capillary Refill Skin: Warm, Dry, Intact Wound/Incisions: Healing Well Neurological: No New Focal Deficit Psy/Mental Status: Alert, Normal Affect, Normal Mood - Problem List & Annotations (1) Term SNOMED Code(s): 70650711 Code(s): Z34.80 - ENCOUNTER FOR SUPRVSN OF NORMAL , UNSP TRIMESTER Status: Acute Current Visit: Yes (2) Pre-eclampsia SNOMED Code(s): 643723235 Code(s): O14.90 - UNSPECIFIED PRE-ECLAMPSIA, UNSPECIFIED TRIMESTER Status: Acute Current Visit: Yes Qualifiers: Trimester: third trimester Qualified Code(s): O14.93 - Unspecified pre- eclampsia, third trimester (3) H/O: SNOMED Code(s): 060420963 Code(s): Z98.891 - HISTORY OF UTERINE SCAR FROM PREVIOUS SURGERY Status: Acute Current Visit: Yes (4) Obesity affecting SNOMED Code(s): 817659017604 Code(s): O99.210 - OBESITY COMPLICATING , UNSPECIFIED TRIMESTER Status: Acute Current Visit: Yes Qualifiers: Trimester: third trimester Qualified Code(s): O99.213 - Obesity complicating , third trimester (5) Anemia affecting fourth SNOMED Code(s): 96971261 Code(s): O99.019 - ANEMIA COMPLICATING , UNSPECIFIED TRIMESTER; O09.40 - SUPERVISION OF W GRAND MULTIPARITY, UNSP TRIMESTER Status: Acute Current Visit: Yes - Problem List Review Problem List Initiated/Reviewed/Updated: Yes - My Orders Last 24 Hours: My Active Orders 06/22/17 07:39 Patient Status [ADT] Routine Antiembolic Devices [RC] .Routine VTE/DVT Education [RC] Click to Edit Lactated Ringers [Ringers, Lactated] 1,000 ml IV ASDIRECTED Sodium Chloride 0.9% [Saline Flush] 10 ml FLUSH ASDIRECTED PRN DVT/VTE Prophylaxis Reflex [OM.PC] Routine Peripheral IV Insertion Adult [OM.PC] Routine Sequential Compression Device [OM.PC] Routine 06/22/17 10:45 Ambulate [RC] ASDIRECTED Intake and Output [RC] 06,14,22 RT Incentive Spirometry [RC] Q4HWA Wound Care [RC] 08,16,00 Lactated Ringers [Ringers, Lactated] 1,000 ml IV ASDIRECTED Naloxone [Narcan] 0.1 mg IVPUSH ONETIME PRN diphenhydrAMINE [Benadryl] 25 mg IVPUSH Q6H PRN ePHEDrine [ePHEDrine Sulfate] 5 mg IVPUSH ASDIRECTED PRN Assess Uterine Involution [WOMSER] Per Unit Routine 06/22/17 Dinner Regular Diet [DIET] 06/23/17 07:00 Arboleda Catheter Insertion [Insert Urinary Catheter] [OM.PC] Q24H 06/23/17 08:01 Acetaminophen [Tylenol] 650 mg PO Q4H PRN 06/23/17 12:00 Enoxaparin [Lovenox] 40 mg SUBCUT Q24H 06/25/17 07:16 Remove Patch 1 linus SMITH BEDTIME - Plan Plan:: Low hgb. Blood loss plus dilutional?. DC IVF.DC arboleda.Motrin for pain.Ambulate.
[2017-06-23] MEDS: Ibuprofen 600 MG Tab PO SCH ×3 (09:16→20:13)
[2017-06-23] MEDS ORDERED: Enoxaparin 40 MG/0.4 ML Syringe SUBCUT SCH (12:00)
[2017-06-23] MEDS: Acetaminophen/Codeine 300-30 MG Tab PO PRN ×2 (13:02→22:10)
--- NOTE | 2017-06-24 00:38 | PCM.PNPP ---
- General Info Date of Service: 06/24/17 Functional Status: Reports: Pain Controlled, Tolerating Diet, Ambulating - Review of Systems General: Reports: No Symptoms HEENT: Reports: No Symptoms Pulmonary: Reports: No Symptoms Cardiovascular: Reports: No Symptoms - Patient Data Vital Signs - Most Recent: Last Vital Signs Temp 98.3 F 06/23/17 00:00 Pulse 82 06/23/17 00:00 Resp 18 06/23/17 00:00 BP 114/61 06/23/17 00:00 Pulse Ox 95 06/23/17 14:00 Weight - Most Recent: 130.635 kg I&O - Last 24 Hours: Intake & Output 06/23/17 06/23/17 06/24/17 14:59 22:59 06:59 Intake Total 500 Output Total 890 Balance -390 Lab Results - Last 24 Hours: Laboratory Results - last 24 hr 06/23/17 Range/Units 06:20 WBC 11.6 (4.5-12.0) X10-3/uL RBC 3.01 L (3.23-5.20) x10(6)uL Hgb 7.8 L (11.5-15.5) g/dL Hct 23.7 L (30.0-51.3) % MCV 78.6 L (80-96) fL MCH 25.9 L (27.7-33.6) pg MCHC 32.9 (32.2-35.4) g/dL RDW 14.9 (11.5-15.5) % Plt Count 135 (125-369) X10(3)uL Med Orders - Current: Current Medications Acetaminophen (Tylenol) 650 mg PO Q4H PRN PRN Reason: Pain Acetaminophen/Codeine Phosphate (Tylenol With Codeine No.3 300mg/30mg) 2 tab PO Q6H PRN PRN Reason: Breakthrough Pain Last Admin: 06/23/17 22:10 Dose: 2 tab Diphenhydramine HCl (Benadryl) 25 mg IVPUSH Q6H PRN PRN Reason: Itching or Nausea Last Admin: 06/22/17 23:44 Dose: 25 mg Enoxaparin Sodium (Lovenox) 40 mg SUBCUT Q24H MARSHA Last Admin: 06/23/17 12:54 Dose: 40 mg Ephedrine Sulfate (Ephedrine Sulfate) 5 mg IVPUSH ASDIRECTED PRN PRN Reason: Other Lactated Ringer's (Ringers, Lactated) 1,000 mls @ 125 mls/hr IV ASDIRECTED [facility] Last Admin: 06/22/17 07:45 Dose: 125 mls/hr Promethazine HCl 6.25 mg/ (Sodium Chloride) 50.25 mls @ 200 mls/hr IV Q6H PRN PRN Reason: Nausea/Vomiting Ibuprofen (Motrin) 600 mg PO Q6H [facility] Last Admin: 06/23/17 20:13 Dose: 600 mg Miscellaneous Information (Remove Patch) 1 ea TRDERM ONETIME ONE Stop: 06/25/17 07:17 Morphine Sulfate (Morphine) 2 mg IVPUSH Q1H PRN PRN Reason: Pain Nalbuphine HCl (Nubain) 10 mg IVPUSH Q1H PRN PRN Reason: Pruritus Naloxone HCl (Narcan) 0.1 mg IVPUSH ONETIME PRN PRN Reason: Oversedation Naloxone HCl (Narcan) 0.1 mg IVPUSH ONETIME PRN PRN Reason: Respiratory Depression Ondansetron HCl (Zofran) 4 mg IVPUSH Q6H PRN PRN Reason: Nausea/Vomiting Sodium Chloride (Saline Flush) 10 ml FLUSH ASDIRECTED PRN PRN Reason: Keep Vein Open Discontinued Medications Citric Acid/Sodium Citrate (Bicitra Solution) 30 ml PO ONETIME ONE Stop: 06/22/17 07:17 Last Admin: 06/22/17 09:28 Dose: 30 ml Diphenhydramine HCl (Benadryl) 25 mg IV ONETIME PRN PRN Reason: Pruritus Cefazolin Sodium 3 gm/ Sodium (Chloride) 100 mls @ 200 mls/hr IV ONETIME ONE Stop: 06/22/17 07:59 Last Admin: 06/22/17 09:27 Dose: 200 mls/hr Lactated Ringer's (Ringers, Lactated) 1,000 mls @ 250 mls/hr IV ASDIRECTED [facility] Last Admin: 06/23/17 05:35 Dose: 250 mls/hr Ketorolac Tromethamine (Toradol) 15 mg IVPUSH Q6H PRN PRN Reason: Pain Stop: 06/27/17 10:44 Morphine Sulfate (Morphine) 2 mg IVPUSH Q3M PRN PRN Reason: Abdominal Pain Scopolamine (Transderm-Scop) 1.5 mg TOP ONETIME ONE Stop: 06/22/17 07:17 Last Admin: 06/22/17 08:00 Dose: 1.5 mg - Infant Interaction Infant Disposition, : in Room with Family Support Person: Other (see below) - Recovery Exam Fundal Tone: Firms with Massage Fundal Level: At Umbilicus Fundal Placement: Left Lochia Amount: Small Lochia Color: Rubra/Red Perineum Description: Intact, Minimal Bruising/Swelling Episiotomy/Laceration: None Bladder Status: Nonpalpable Urinary Elimination: Indwelling Catheter - Exam General: Alert, Oriented HEENT: Pupils Equal Neck: Supple Lungs: Clear to Auscultation, Normal Respiratory Effort Cardiovascular: Regular Rate, Regular Rhythm - Problem List & Annotations (1) Term SNOMED Code(s): 75214544 Code(s): Z34.80 - ENCOUNTER FOR SUPRVSN OF NORMAL , UNSP TRIMESTER Status: Acute Current Visit: Yes (2) Pre-eclampsia SNOMED Code(s): 480719104 Code(s): O14.90 - UNSPECIFIED PRE-ECLAMPSIA, UNSPECIFIED TRIMESTER Status: Acute Current Visit: Yes Qualifiers: Trimester: third trimester Qualified Code(s): O14.93 - Unspecified pre- eclampsia, third trimester (3) H/O: SNOMED Code(s): 921809724 Code(s): Z98.891 - HISTORY OF UTERINE SCAR FROM PREVIOUS SURGERY Status: Acute Current Visit: Yes (4) Obesity affecting SNOMED Code(s): 377889009139 Code(s): O99.210 - OBESITY COMPLICATING , UNSPECIFIED TRIMESTER Status: Acute Current Visit: Yes Qualifiers: Trimester: third trimester Qualified Code(s): O99.213 - Obesity complicating , third trimester (5) Anemia affecting fourth SNOMED Code(s): 86791018 Code(s): O99.019 - ANEMIA COMPLICATING , UNSPECIFIED TRIMESTER; O09.40 - SUPERVISION OF W GRAND MULTIPARITY, UNSP TRIMESTER Status: Acute Current Visit: Yes - Problem List Review Problem List Initiated/Reviewed/Updated: Yes - My Orders Last 24 Hours: My Active Orders 02/17/18 07:00 Mccall Catheter Insertion [Insert Urinary Catheter] [OM.PC] Q24H 06/23/17 08:01 Acetaminophen [Tylenol] 650 mg PO Q4H PRN 06/23/17 08:41 Acetaminophen/Codeine [Tylenol with Codeine No.3 300MG/30MG] 2 tab PO Q6H PRN 06/23/17 08:45 Ibuprofen [Motrin] 600 mg PO Q6H 06/23/17 12:00 Enoxaparin [Lovenox] 40 mg SUBCUT Q24H 06/25/17 07:16 Remove Patch 1 ea LUIS ONETIME ONE - Plan Plan:: BP has been normal. Wants to go home today.
[2017-06-24 01:26] VITALS: BP 131/66
[2017-06-24] MEDS: Ibuprofen 600 MG Tab PO SCH ×2 (02:12→08:00)
[2017-06-24] MEDS: Acetaminophen/Codeine 300-30 MG Tab PO PRN (06:29)
--- NOTE | 2017-06-26 01:06 | DISCH ---
DISCHARGE DATE: 06/24/2017 REASON FOR ADMISSION: 1. Repeat . 2. Obesity. 3. Preeclampsia mild. 4. Term . DISCHARGE DIAGNOSES: 1. Repeat . 2. Obesity. 3. Preeclampsia mild. 4. Term . 5. Anemia due to blood loss. BRIEF HISTORY: This is a 27-year-old female, admitted on the for an elective repeat at 38+ weeks. She had mild preeclampsia preoperatively. We did surgery on the by myself and Dr. Helton. Postoperatively, she did well. Ambulated well. Had DVT prophylaxis in the form of Lovenox. Hemoglobin was 7.8 at discharge, but had no symptoms. She was advised to follow up in the office within 1 week. DISCHARGE MEDICATIONS: 1. Tylenol No. 3 one tablet t.i.d. p.r.n. 15 tablets. 2. vitamins. FOLLOWUP: In 1 week with myself. I spent more than 35 minutes in the discharge of the patient. /[id number] KUN/DANTE
== END 2017-06-24 08:36 | disposition home or self-care (01) | DRG 766 ==
LOC: FB.OB 06:57
PROVIDERS: ADMIT Surgery; ATTEND Family Medicine
PROC: 10D00Z1 Extraction of Products of Conception, Low, Open Approach (ICD-10-PCS; principal; 2017-06-22)
PROC: 10D17Z9 Manual Extraction of Products of Conception, Retained, Via Natural or Artificial Opening (ICD-10-PCS; 2017-06-22)
DX: O14.03 Mild to moderate pre-eclampsia, third trimester (principal); O34.211 Maternal care for low transverse scar from previous cesarean delivery; N85.8 Other specified noninflammatory disorders of uterus; Z3A.38 38 weeks gestation of pregnancy; Z37.0 Single live birth; Z88.0 Allergy status to penicillin; Z87.891 Personal history of nicotine dependence; O99.214 Obesity complicating childbirth; O99.02 Anemia complicating childbirth
CPT/HCPCS: 36415; 85025; 85027; 86850; 86900; 86901; 94150; A9270-GY; J0690; J1200; J1650; J2270; J2590; J7030; J7120

== ENCOUNTER 2019-08-28 12:46 | Emergency (ER) | payer MEDICARE, MEDICAID ==
[2019-08-28] MEDS: Cyclobenzaprine 10 MG Tab PO ONE (13:12)
[2019-08-28] MEDS: Ketorolac 60 MG/2 ML SDV IM ONE (13:12)
--- NOTE | 2019-08-28 13:17 | EDM.PDOC ---
ED HPI GENERAL MEDICAL PROBLEM - General Stated Complaint: MIGRAINE Time Seen by Provider: 08/28/19 13:00 Source of Information: Reports: Patient History Limitations: Reports: No Limitations - History of Present Illness INITIAL COMMENTS - FREE TEXT/NARRATIVE: Patient presented to the ED because of headache over the bifrontal area,6/10 with associated photophobia and neck pain. there is no fever or chills. She at least one headache 1-2x a month, she took OTC tylenol and ibuprofen without any relief. back of neck and front part of head Pain Score (Numeric/FACES): 6 - Related Data Allergies Allergy/AdvReac Type Severity Reaction Status Date / Time Penicillins Allergy Hives Verified 06/22/17 07:50 Home Meds: Home Meds No122/Iron/Folic Acid [ Multi Tablet] 1 tab PO DAILY 01/07/17 [ History] Acetaminophen/Codeine [Tylenol with Codeine No.3 300MG/30MG] 2 tab PO Q6H PRN # 15 tablet 06/24/17 [Rx] SUMAtriptan succinate [Imitrex] 100 mg PO DAILY PRN #7 tablet 08/28/19 [Rx] Past Medical History HEENT History: Reports: Otitis Media Other HEENT History: rightsided diagnosed earlier today Cardiovascular History: Reports: None Respiratory History: Reports: None Gastrointestinal History: Reports: Cholelithiasis Genitourinary History: Reports: None 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 TRANSLATOR 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: 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: 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 CONFERENCE TRANSLATOR History: Musculoskeletal History: Reports: Other (See Below) Other Musculoskeletal History: RT LEG PAIN Neurological History: Reports: Migraines Psychiatric History: Reports: None Endocrine/Metabolic History: Reports: Obesity/BMI 30+ Hematologic History: Reports: Anemia, Blood Transfusion(s), Other (See Below) Other Hematologic History: Had blood transfusion after the twins were born but not sure why Immunologic History: Reports: None Oncologic (Cancer) History: Reports: None Dermatologic History: Reports: None - Infectious Disease History Infectious Disease History: Reports: Chicken Pox - Past Surgical History GI Surgical History: Reports: None Social & Family History - Family History Family Medical History: Noncontributory OBGYN: Reports: , Other (See Below) Other OBGYN Family History: No Control,. Sexually Active, no period for several months Musculoskeletal: Reports: None Neurological: Reports: Seizure Psychiatric: Reports: None Endocrine/Metabolic: Reports: Diabetes, Type I, Diabetes, type II Hematologic: Reports: None Oncologic: Reports: Liver, Renal, Other (See Below) Other Oncologic Family History: father of cancer last year - Caffeine Use Caffeine Use: Reports: Coffee ED ROS GENERAL - Review of Systems Review Of Systems: See Below Constitutional: Reports: No Symptoms HEENT: Reports: No Symptoms Respiratory: Reports: No Symptoms Cardiovascular: Reports: Dyspnea on Exertion Endocrine: Reports: No Symptoms GI/Abdominal: Reports: No Symptoms : Reports: No Symptoms Musculoskeletal: Reports: No Symptoms Skin: Reports: No Symptoms Neurological: Reports: Headache Psychiatric: Reports: No Symptoms Hematologic/Lymphatic: Reports: No Symptoms ED EXAM, NEURO - Physical Exam Exam: See Below Exam Limited By: No Limitations General Appearance: Alert, No Apparent Distress Eye Exam: Bilateral Eye: PERRL Ears: Normal External Exam, Normal Canal Nose: Normal Inspection, Normal Mucosa Throat/Mouth: Normal Inspection, Normal Lips, Normal Teeth Head Exam: Atraumatic, Normocephalic Neck: Normal Inspection, Supple, Non-Tender Respiratory/Chest: No Respiratory Distress, Lungs Clear, Normal Breath Sounds Cardiovascular: Normal Peripheral Pulses, Regular Rate, Rhythm, No Edema, No Gallop GI/Abdominal: Normal Bowel Sounds, Soft, Non-Tender Neurological: Alert, Normal Mood/Affect, CN II-XII Intact, Normal Gait, No Motor /Sensory Deficits, Oriented x 3 Course - Vital Signs Text/Narrative:: toradol 6o mg IM x1 Flexeril 10 mg po x1\imitrex 6 mg SC x1 Last Recorded V/S: Last Vital Signs Temp 36.1 C 08/28/19 12:46 Pulse 82 08/28/19 12:46 Resp 16 08/28/19 12:46 BP 107/77 08/28/19 12:46 Pulse Ox 99 08/28/19 12:46 - Orders/Labs/Meds Meds: Medications Discontinued Medications Generic Name Dose Route Start Last Admin Trade Name Gilq PRN Reason Stop Dose Admin Cyclobenzaprine HCl 10 mg 08/28/19 13:01 08/28/19 13:12 Flexeril PO 08/28/19 13:02 10 mg ONETIME ONE Administration Ketorolac Tromethamine 60 mg 08/28/19 13:01 08/28/19 13:12 Toradol IM 08/28/19 13:02 60 mg ONETIME ONE Administration Sumatriptan Succinate 6 mg 08/28/19 13:34 Imitrex SUBCUT 08/28/19 13:35 ONETIME ONE Departure - Departure Time of Disposition: 13:25 Disposition: Home, Self-Care 01 Condition: Good Clinical Impression: Migraine headache - Discharge Information Prescriptions: SUMAtriptan succinate [Imitrex] 100 mg PO DAILY PRN #7 tablet PRN Reason: Headache Instructions: Migraine Headache Referrals: Selwyn Arceo MD [Primary Care Provider] - Forms: ED Department Discharge Additional Instructions: Please read discharge instructions on migraine headache take imitrex 100 once daily as needed for headache. It works best when you take it with ibuprofen 800 mg and tylenol 1000mg Sepsis Event Note - Evaluation Sepsis Screening Result: No Definite Risk - Focused Exam Vital Signs: Vital Signs Temp Pulse Resp BP Pulse Ox 08/28/19 12:46 36.1 C 82 16 107/77 99 Date Exam was Performed: 08/28/19 Time Exam was Performed: 13:37
[2019-08-28] MEDS: SUMAtriptan 6 MG/0.5 ML SDV SUBCUT ONE (13:39)
[2019-08-28 15:48] VITALS: BP 121/62; PULSE 74
== END 2019-08-28 14:03 | disposition home or self-care (01) ==
LOC: FB.ED 12:46
DX: G43.909 Migraine, unspecified, not intractable, without status migrainosus (principal); Z88.0 Allergy status to penicillin; E66.9 Obesity, unspecified; Z68.36 Body mass index [BMI] 36.0-36.9, adult
CPT/HCPCS: 96372; 99284; A9270; J1885; J3030

== ENCOUNTER 2020-12-12 19:30 | Emergency (ER) | payer MEDICARE, MEDICAID ==
[2020-12-12 19:46] VITALS: PULSE 85
[2020-12-12] MEDS ORDERED: Ketorolac 30 MG/ML SDV IM STA (19:46)
--- NOTE | 2020-12-12 19:50 | EDM.PDOC ---
ED HPI GENERAL MEDICAL PROBLEM - General Chief Complaint: Headache Stated Complaint: headache Time Seen by Provider: 12/12/20 19:45 Source of Information: Reports: Patient History Limitations: Reports: No Limitations - History of Present Illness INITIAL COMMENTS - FREE TEXT/NARRATIVE: Patient presented to the ED because of headache which started 2 days ago. The pain is throbbing over the frontal area and goes all the way to the back of hear neck and occipital area. She rate her pain 8/10 and tried OTC medication for headache with mild relief. There is no associated fever, nausea or potophobia. Headache Pain Score (Numeric/FACES): 8 - Related Data Allergies Allergy/AdvReac Type Severity Reaction Status Date / Time Penicillins Allergy Hives Verified 12/12/20 19:51 Home Meds: Home Meds No122/Iron/Folic Acid [ Multi Tablet] 1 tab PO DAILY 01/07/17 [History] Acetaminophen/Codeine [Tylenol with Codeine No.3 300MG/30MG] 2 tab PO Q6H PRN #15 tablet 06/24/17 [Rx] SUMAtriptan succinate [Imitrex] 100 mg PO DAILY PRN #7 tablet 08/28/19 [Rx] Ketorolac [Toradol] 10 mg PO TID PRN #15 tab 12/12/20 [Rx] Past Medical History HEENT History: Reports: Otitis Media Other HEENT History: rightsided diagnosed earlier today Cardiovascular History: Reports: None Respiratory History: Reports: None Gastrointestinal History: Reports: Cholelithiasis Genitourinary History: Reports: None TECHNICAL ASSISTANCE CONSULTANT 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: Reports: Other TECHNICAL ASSISTANCE CONSULTANT History: Musculoskeletal History: Reports: Other (See Below) Other Musculoskeletal History: RT LEG PAIN Neurological History: Reports: Migraines Psychiatric History: Reports: None Endocrine/Metabolic History: Reports: Obesity/BMI 30+ Hematologic History: Reports: Anemia, Blood Transfusion(s), Other (See Below) Other Hematologic History: Had blood transfusion after the twins were born but not sure why Immunologic History: Reports: None Oncologic (Cancer) History: Reports: None Dermatologic History: Reports: None - Infectious Disease History Infectious Disease History: Reports: Chicken Pox - Past Surgical History Head Surgeries/Procedures: Reports: None Respiratory Surgical History: Reports: None GI Surgical History: Reports: None Female Surgical History: Reports: Section Endocrine Surgical History: Reports: None Neurological Surgical History: Reports: None Musculoskeletal Surgical History: Reports: None Oncologic Surgical History: Reports: None Social & Family History - Family History Family Medical History: No Pertinent Family History OBGYN: Reports: , Other (See Below) Other OBGYN Family History: No Control,. Sexually Active, no period for s everal months Musculoskeletal: Reports: None Neurological: Reports: Seizure Psychiatric: Reports: None Endocrine/Metabolic: Reports: Diabetes, Type I, Diabetes, type II Hematologic: Reports: None Oncologic: Reports: Liver, Renal, Other (See Below) Other Oncologic Family History: father of cancer last year - Caffeine Use Caffeine Use: Reports: Coffee ED ROS GENERAL - Review of Systems Review Of Systems: See Below Constitutional: Reports: No Symptoms HEENT: Reports: No Symptoms Respiratory: Reports: No Symptoms Cardiovascular: Reports: No Symptoms Endocrine: Reports: No Symptoms GI/Abdominal: Reports: No Symptoms : Reports: No Symptoms Musculoskeletal: Reports: No Symptoms Skin: Reports: No Symptoms Neurological: Reports: Headache Psychiatric: Reports: No Symptoms Hematologic/Lymphatic: Reports: No Symptoms - Physical Exam Exam: See Below Exam Limited By: No Limitations General Appearance: Alert, No Apparent Distress Ears: Normal External Exam, Normal Canal Nose: Normal Inspection, Normal Mucosa Throat/Mouth: Normal Inspection, Normal Lips, Normal Teeth Head Exam: Atraumatic, Normocephalic Neck: Normal Inspection, Supple, Non-Tender, Full Range of Motion Respiratory/Chest: No Respiratory Distress, Lungs Clear, Normal Breath Sounds, No Accessory Muscle Use, Chest Non-Tender Cardiovascular: Normal Peripheral Pulses, Regular Rate, Rhythm, No Edema, No Gallop, No JVD, No Murmur, No Rub GI/Abdominal: Normal Bowel Sounds, Soft, Non-Tender, No Organomegaly Neuro Exam (Abbreviated): Alert, Oriented, CN II-XII Intact, Normal Cognition, Normal Reflexes, No Motor/Sensory Deficits Course - Vital Signs Text/Narrative:: Toradol 60 mg IM x1 Last Recorded V/S: Last Vital Signs Temp 37.1 C 12/12/20 19:42 Pulse 85 12/12/20 19:42 Resp 18 12/12/20 19:42 BP 123/39 L 12/12/20 19:42 Pulse Ox 100 12/12/20 19:42 - Orders/Labs/Meds Meds: Medications Discontinued Medications Generic Name Dose Route Start Last Admin Trade Name Gregorio PRN Reason Stop Dose Admin Ketorolac Tromethamine 60 mg 12/12/20 19:46 12/12/20 19:54 Ketorolac 30 Mg/Ml Sdv IM 12/12/20 19:47 60 mg NOW STA Administration Departure - Departure Time of Disposition: 20:00 Disposition: Home, Self-Care 01 Condition: Good Clinical Impression: Headache - Discharge Information Prescriptions: Ketorolac [Toradol] 10 mg PO TID PRN #15 tab PRN Reason: Pain Instructions: Tension Headache, Adult, [id number] Referrals: Selwyn Arceo MD [Primary Care Provider] - Forms: ED Department Discharge Additional Instructions: Please read discharge instructions on tension headache Take toradol 10 mg witith tylenol 1000 mg every 8 hours as needed for pa in/headache Follow up as needed Sepsis Event Note (ED) - Evaluation Sepsis Screening Result: No Definite Risk - Focused Exam Vital Signs: Vital Signs Temp Pulse Resp BP Pulse Ox 12/12/20 19:42 37.1 C 85 18 123/39 L 100
[2020-12-12 19:53] VITALS: BP 123/39
== END 2020-12-12 20:01 | disposition home or self-care (01) ==
LOC: FB.ED 19:30
DX: R51.9 Headache, unspecified (principal); E66.9 Obesity, unspecified; Z88.0 Allergy status to penicillin; Z79.899 Other long term (current) drug therapy
CPT/HCPCS: 96372; 99283; J1885

== ENCOUNTER 2021-04-23 21:28 | Emergency (ER) | payer MEDICARE, MEDICAID ==
[2021-04-23] MEDS ORDERED: Acetaminophen/Codeine 300-30 MG Tab PO ONE (21:29)
--- NOTE | 2021-04-23 21:58 | EDM.PDOC ---
ED HPI GENERAL MEDICAL PROBLEM - General Stated Complaint: TOOTH PAIN Time Seen by Provider: 04/23/21 21:52 Source of Information: Reports: Patient History Limitations: Reports: No Limitations - History of Present Illness INITIAL COMMENTS - FREE TEXT/NARRATIVE: Tooth pain,left lower jaw x 2 days. Has a dental appt on May.Tried Motrin and Tylenol - Related Data Allergies Allergy/AdvReac Type Severity Reaction Status Date / Time Penicillins Allergy Hives Verified 12/12/20 19:51 Home Meds: Home Meds No122/Iron/Folic Acid [ Multi Tablet] 1 tab PO DAILY 01/07/17 [History] Acetaminophen/Codeine [Tylenol with Codeine No.3 300MG/30MG] 2 tab PO Q6H PRN #15 tablet 06/24/17 [Rx] SUMAtriptan succinate [Imitrex] 100 mg PO DAILY PRN #7 tablet 08/28/19 [Rx] Ketorolac [Toradol] 10 mg PO TID PRN #15 tab 12/12/20 [Rx] Past Medical History HEENT History: Reports: Otitis Media Other HEENT History: rightsided diagnosed earlier today Cardiovascular History: Reports: None Respiratory History: Reports: None Gastrointestinal History: Reports: Cholelithiasis Genitourinary History: Reports: None 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: Musculoskeletal History: Reports: Other (See Below) Other Musculoskeletal History: RT LEG PAIN Neurological History: Reports: Migraines Psychiatric History: Reports: None Endocrine/Metabolic History: Reports: Obesity/BMI 30+ Hematologic History: Reports: Anemia, Blood Transfusion(s), Other (See Below) Other Hematologic History: Had blood transfusion after the twins were born but not sure why Immunologic History: Reports: None Oncologic (Cancer) History: Reports: None Dermatologic History: Reports: None - Infectious Disease History Infectious Disease History: Reports: Chicken Pox - Past Surgical History Head Surgeries/Procedures: Reports: None Respiratory Surgical History: Reports: None GI Surgical History: Reports: None Female Surgical History: Reports: Section Endocrine Surgical History: Reports: None Neurological Surgical History: Reports: None Musculoskeletal Surgical History: Reports: None Oncologic Surgical History: Reports: None Social & Family History - Family History Family Medical History: No Pertinent Family History OBGYN: Reports: , Other (See Below) Other OBGYN Family History: No Control,. Sexually Active, no period for several months Musculoskeletal: Reports: None Neurological: Reports: Seizure Psychiatric: Reports: None Endocrine/Metabolic: Reports: Diabetes, Type I, Diabetes, type II Hematologic: Reports: None Oncologic: Reports: Liver, Renal, Other (See Below) Other Oncologic Family History: father of cancer last year - Caffeine Use Caffeine Use: Reports: Coffee, Soda ED ROS ENT - Review of Systems Review Of Systems: Comprehensive ROS is negative, except as noted in HPI. ED EXAM, ENT - Physical Exam Exam: See Below Text/Narrative:: Poor dentition. Dental cavity noted left lower jaw. Tender Exam Limited By: No Limitations General Appearance: Alert Departure - Departure Time of Disposition: 21:56 Disposition: Home, Self-Care 01 Condition: Good Clinical Impression: Tooth pain - Discharge Information Instructions: Dental Pain Referrals: Selwyn Arceo MD [Primary Care Provider] - (PRN) - Problem List & Annotations (1) Tooth pain SNOMED Code(s): 01640857 Code(s): K08.89 - OTHER SPECIFIED DISORDERS OF TEETH AND SUPPORTING STRUCTURES Status: Acute - Problem List Review Problem List Initiated/Reviewed/Updated: Yes - Assessment/Plan Plan: Tylnol 3 # 8 tabs given.
[2021-04-23 22:53] VITALS: BP 141/68; PULSE 87
== END 2021-04-23 22:10 | disposition home or self-care (01) ==
LOC: FB.ED 21:28
DX: K08.89 Other specified disorders of teeth and supporting structures (principal); Z88.0 Allergy status to penicillin
CPT/HCPCS: 99282; A9270

== ENCOUNTER 2022-12-02 17:22 | Emergency (ER) | payer MEDICARE, MEDICAID ==
[2022-12-02 17:48] VITALS: BP 103/62; PULSE 18
[2022-12-02] MEDS: tiZANidine 4 MG Tab PO STA (18:20)
[2022-12-02] MEDS: Cephalexin 500 MG Cap PO ONE (18:20)
[2022-12-02] MEDS: Ketorolac 30 MG/ML SDV IM ONE (18:21)
== END 2022-12-02 18:40 | disposition home or self-care (01) ==
LOC: FB.ED 17:22
DX: G44.40 Drug-induced headache, not elsewhere classified, not intractable (principal); T39.1X5A Adverse effect of 4-Aminophenol derivatives, initial encounter; M79.3 Panniculitis, unspecified; E66.9 Obesity, unspecified; Z68.41 Body mass index [BMI] 40.0-44.9, adult; Z88.0 Allergy status to penicillin; Z91.030 Bee allergy status
CPT/HCPCS: 96372; 99283; A9270-GY; J1885

== ENCOUNTER 2023-06-01 23:00 | Emergency (ER) | payer MEDICARE, MEDICAID ==
[2023-06-01 23:43] VITALS: BP 130/84; PULSE 86
[2023-06-01] MEDS ORDERED: Cyclobenzaprine 10 MG Tab PO ONE (23:49)
== END 2023-06-02 00:22 | disposition home or self-care (01) ==
LOC: FB.ED 23:00
DX: M46.1 Sacroiliitis, not elsewhere classified (principal); E66.9 Obesity, unspecified; Z86.16 Personal history of COVID-19; Z79.899 Other long term (current) drug therapy; Z88.0 Allergy status to penicillin; Z91.030 Bee allergy status; Z68.41 Body mass index [BMI] 40.0-44.9, adult
CPT/HCPCS: 99283; A9270

== ENCOUNTER 2024-02-26 19:11 | Emergency (ER) | payer MEDICARE, MEDICAID ==
[2024-02-26] MEDS: Ketorolac 30 MG/ML SDV IM ONE (19:54)
[2024-02-26] MEDS: hydrOXYzine HCl 50 MG/ML SDV IM ONE (19:55)
[2024-02-26 20:39] VITALS: BP 121/49; PULSE 89
== END 2024-02-26 20:45 | disposition home or self-care (01) ==
LOC: FB.ED 19:11
DX: G44.209 Tension-type headache, unspecified, not intractable (principal); E66.9 Obesity, unspecified; Z86.16 Personal history of COVID-19; Z88.0 Allergy status to penicillin; Z91.030 Bee allergy status
CPT/HCPCS: 96372; 99283; J1885; J3410

== ENCOUNTER 2024-03-14 23:20 | Emergency (ER) | payer MEDICARE, MEDICAID ==
[2024-03-14 23:32] VITALS: BP 148/93; PULSE 104
[2024-03-14] MEDS ORDERED: Oxymetazoline 0.05% Nasal Spray 30 ML Bottle NAS ONE (23:37)
== END 2024-03-14 23:54 | disposition home or self-care (01) ==
LOC: FB.ED 23:20
DX: B34.9 Viral infection, unspecified (principal); E66.9 Obesity, unspecified; Z68.42 Body mass index [BMI] 45.0-49.9, adult; Z86.16 Personal history of COVID-19; Z79.899 Other long term (current) drug therapy; Z88.0 Allergy status to penicillin; Z91.030 Bee allergy status
CPT/HCPCS: 99283

== ENCOUNTER 2024-08-29 23:18 | Emergency (ER) | payer MEDICARE, MEDICAID ==
[2024-08-29 23:44] VITALS: BP 180/78; PULSE 98
== END 2024-08-30 00:26 | disposition home or self-care (01) ==
LOC: FB.ED 23:18
DX: K04.7 Periapical abscess without sinus (principal); K02.9 Dental caries, unspecified; Z88.0 Allergy status to penicillin; Z91.030 Bee allergy status; Z79.899 Other long term (current) drug therapy; Z86.16 Personal history of COVID-19
CPT/HCPCS: 99283

== ENCOUNTER 2024-11-07 18:39 | Emergency (ER) | payer MEDICARE, MEDICAID ==
[2024-11-07 19:11] LABS: BASOPHILS ABSOLUTE AUTO 0.1 x10-3/uL (0.0-0.1); BASOPHILS PERCENT AUTO 0.7 % (0.2-1.5); EOSINOPHILS ABSOLUTE AUTO 0.3 x10-3/uL (0.0-0.8); EOSINOPHILS PERCENT AUTO 2.7 % (0.6-8.1); LYMPHOCYTES ABSOLUTE AUTO 3.0 x10-3/uL (1.0-4.4); LYMPHOCYTES PERCENT AUTO 31.5 % (18.4-52.1); MEAN PLATELET VOLUME 9.6 fL (7.1-12.4); MONOCYTES ABSOLUTE AUTO 0.8 x10-3/uL (0.3-1.0); MONOCYTES PERCENT AUTO 8.4 % (4.4-15.7); NEUTROPHILS ABSOLUTE AUTO 5.4 x10-3/uL (1.5-6.3); NEUTROPHILS PERCENT AUTO 56.7 % (30.8-76.2); PLATELET COUNT,PLT 190 x10(3)uL (151-488); RED BLOOD CELL COUNT 4.29 x10(6)uL (3.60-5.20); RED CELL DISTRIBUTION WIDTH 15.8 % (12.3-16.5); WHITE BLOOD CELL COUNT,WBC 9.5 x10-3/uL (3.0-10.3)
[2024-11-07 19:18] LABS: BLOOD UREA NITROGEN,BUN 11 mg/dL (7-18); CARBON DIOXIDE,CO2 30 mmol/L (21-32); CHLORIDE,CL 106 mmol/L (100-110); CREATININE 0.8 mg/dL (0.55-1.02); ESTIMATED GFR 98 mL/min (>60); GLUCOSE RANDOM 124 mg/dL (80-116); POTASSIUM,K 3.8 mmol/L (3.5-5.3); SODIUM,NA 142 mmol/L (135-145)
[2024-11-07 19:24] LABS: A/G RATIO 0.7; ALANINE AMINOTRANSFERASE,ALT 25 U/L (12-36); ASPARTATE AMNIOTRANSFERASE,AST 21 IU/L (5-25); BILIRUBIN TOTAL 0.2 mg/dL (0.1-1.3); PROTEIN TOTAL,TP 7.6 g/dL (6.0-8.0)
[2024-11-07 19:30] VITALS: BP 133/63; PULSE 98
== END 2024-11-07 19:20 | disposition home or self-care (01) ==
LOC: FB.ED 18:39
DX: I89.0 Lymphedema, not elsewhere classified (principal); Z46.89 Encounter for fitting and adjustment of other specified devices; Z88.0 Allergy status to penicillin; Z91.030 Bee allergy status; Z79.899 Other long term (current) drug therapy; Z86.16 Personal history of COVID-19
CPT/HCPCS: 36415; 80053; 83880; 85025; 99283